=== PATIENT | female | born 1970 | race Caucasian/White ===

== ENCOUNTER 2016-09-05 04:52 | Inpatient (IN) | payer MEDICAID ==
[~2016-09-05] VITALS: Ht 165.1 cm; Wt 68.0 kg
[~2016-09-05 04:52] MED LIST: AMLO10TA80 PO; COR12 PO; FAMO40TA70 PO; GLIM2TAB2 PO; INSU3INS6 SUBCUT; METF10002 PO; METO-293 PO
[2016-09-05] MEDS ORDERED: FAMOTIDINE 20MG/2ML VIAL IV STA (06:22)
[2016-09-05] MEDS ORDERED: SODIUM CHLORIDE 0.9% 1,000 ML IV ONE ×2 (06:22→08:25)
[2016-09-05] MEDS ORDERED: METOCLOPRAMIDE HCL 10MG/2ML VIAL IV ONE (06:30)
[2016-09-05] MEDS ORDERED: DIPHENHYDRAMINE 50MG/ML VIAL IV ONE (06:30)
[2016-09-05 06:42] LABS: HEMOGLOBIN. 13.8 g/dL (12.0-16.0); MEAN CORPUSCULAR HEMOGLOBIN 24.9 pg (28.0-32.0); MEAN CORPUSCULAR VOLUME 73.9 fL (81.0-99.0); MEAN PLATELET VOLUME 8.5 fl (7.4-10.4); PLATELET 319 x1000/uL (130-400); RED BLOOD CELL COUNT 5.55 mill/uL (4.2-5.4)
[2016-09-05 06:51] LABS: HCG SCREEN NEGATIVE
[2016-09-05 06:54] LABS: CARBON DIOXIDE 26 mEq/L (21-32); CHLORIDE 95 mEq/L (98-107)
[2016-09-05] MEDS ORDERED: HYDRALAZINE 20MG/ML VIAL IV ONE (07:30)
[2016-09-05] MEDS ORDERED: INSULIN REGULAR (HUMULIN R) UD 100 UNITS/ML SYR SUBCUT ONE (07:30)
[2016-09-05 07:31] LABS: PLATELET ESTIMATE NORMAL
[2016-09-05] MEDS ORDERED: INSULIN REGULAR (HUMULIN R) 300UNITS/3ML SUBCUT SCH (07:50)
[2016-09-05 08:43] LABS: CLARITY URINE CLOUDY (CLEAR); COLOR URINE YELLOW (YELLOW); KETONES URINE 2+ (NEGATIVE); LEUKOCYTE ESTERASE URINE NEGATIVE (NEGATIVE); NITRITE URINE NEGATIVE (NEGATIVE); OCCULT BLOOD URINE NEGATIVE (NEGATIVE); PH URINE 5.5 (4.5-8.0); PROTEIN URINE TRACE (NEGATIVE); SPECIFIC GRAVITY URINE 1.028 (1.005-1.030); UROBILINOGEN URINE 0.2 E.U./dL (0.2-1.0)
[2016-09-05] MEDS ORDERED: IPRATROPIUM/ALBUTEROL 0.5-3(2.5)MG/3ML NEB INH PRN (11:00)
[2016-09-05] MEDS ORDERED: LORAZEPAM 1MG TABLET PO PRN (11:00)
[2016-09-05] MEDS ORDERED: DIPHENHYDRAMINE 50MG/ML VIAL IV PRN (11:00)
[2016-09-05] MEDS ORDERED: ONDANSETRON HCL 4MG/2ML VIAL IV PRN (11:00)
[2016-09-05] MEDS ORDERED: DEXTROSE 50% WATER 50ML SYRINGE IV PRN (11:00)
[2016-09-05] MEDS: INSULIN LISPRO 100 UNITS/ML SUBCUT SCH ×3 (12:40→22:41)
[2016-09-05] MEDS: DICYCLOMINE HCL 10MG CAPSULE PO SCH ×3 (12:45→23:41)
[2016-09-05] MEDS: PANTOPRAZOLE SODIUM 40 MG/VIAL IV SCH (12:45)
[2016-09-05] MEDS: METOCLOPRAMIDE HCL 10MG TABLET PO SCH ×3 (12:46→17:59)
[2016-09-05] MEDS: AMLODIPINE 10MG TABLET PO SCH (12:46)
[2016-09-05] MEDS: HYDROCODONE/ACETAMINOPHEN 10/325MG TABLET PO PRN ×3 (12:47→22:36)
[2016-09-05] MEDS: BLOOD SUGAR DIAGNOSTIC STRIP TEST SCH ×3 (12:53→21:36)
[2016-09-05 15:00] LABS: CLARITY URINE CLOUDY (CLEAR); COLOR URINE YELLOW (YELLOW); KETONES URINE 2+ (NEGATIVE); LEUKOCYTE ESTERASE URINE 1+ (NEGATIVE); NITRITE URINE NEGATIVE (NEGATIVE); OCCULT BLOOD URINE NEGATIVE (NEGATIVE); PROTEIN URINE NEGATIVE (NEGATIVE); SPECIFIC GRAVITY URINE 1.016 (1.005-1.030)
[2016-09-05 15:25] LABS: *AMPHETAMINES SCREEN URINE NEGATIVE (NEGATIVE); *BARBITURATES SCREEN URINE NEGATIVE (NEGATIVE); *BENZODIAZEPINES SCREEN URINE NEGATIVE (NEGATIVE); *COCAINE SCREEN URINE NEGATIVE (NEGATIVE); CANNABINOID URINE SCREEN NEGATIVE (NEGATIVE); METHADONE URINE SCREEN NEGATIVE (NEGATIVE); PHENCYCLIDINE URINE SCREEN NEGATIVE (NEGATIVE)
[2016-09-05 15:27] LABS: OPIATES URINE SCREEN PRESUMTIVE POSITIVE (NEGATIVE)
[2016-09-05] MEDS: DEXT 5%/0.45% NACL KCL 20MEQ/L 1,000 ML IV SCH (15:30)
[2016-09-05 18:01] LABS: CREATINE KINASE 57 IU/L (26-192); TROPONIN I < 0.02 ng/mL (0.00-0.04)
[2016-09-05] MEDS ORDERED: CLONIDINE 0.1MG TABLET PO PRN (18:30)
[2016-09-05] MEDS: CARVEDILOL 12.5MG TABLET PO SCH (22:36)
[2016-09-05] MEDS: INSULIN DETEMIR UD 100 UNITS/ML SYR SUBCUT SCH (22:41)
[2016-09-06 00:10] LABS: TROPONIN I 0.02 ng/mL (0.00-0.04)
[2016-09-06] MEDS: HYDROCODONE/ACETAMINOPHEN 10/325MG TABLET PO PRN ×2 (03:58→10:12)
[2016-09-06] MEDS: DEXT 5%/0.45% NACL KCL 20MEQ/L 1,000 ML IV SCH ×2 (03:58→11:23)
[2016-09-06] MEDS: DICYCLOMINE HCL 10MG CAPSULE PO SCH ×2 (06:02→12:24)
[2016-09-06] MEDS: INSULIN LISPRO 100 UNITS/ML SUBCUT SCH ×2 (06:04→12:26)
[2016-09-06] MEDS: BLOOD SUGAR DIAGNOSTIC STRIP TEST SCH ×2 (06:05→12:24)
[2016-09-06 07:54] LABS: CHLORIDE 99 mEq/L (98-107)
[2016-09-06 08:06] LABS: CARBON DIOXIDE 25 mEq/L (21-32); HDL CHOLESTEROL 91 mg/dL (40-59); LDL CHOLESTEROL 37 mg/dL (5-100)
[2016-09-06] MEDS: PANTOPRAZOLE SODIUM 40 MG/VIAL IV SCH (08:31)
[2016-09-06] MEDS: METOCLOPRAMIDE HCL 10MG TABLET PO SCH ×2 (08:32→12:24)
[2016-09-06] MEDS: CARVEDILOL 12.5MG TABLET PO SCH (08:39)
[2016-09-06] MEDS: AMLODIPINE 10MG TABLET PO SCH (08:40)
[2016-09-06 08:51] LABS: BASOPHILS % 0.4 % (0.0-2.0); EOSINOPHILS % 0.5 % (0.0-5.0); HEMOGLOBIN. 10.4 g/dL (12.0-16.0); LYMPHOCYTES % 39.5 % (20.0-50.0); MEAN CORPUSCULAR HEMOGLOBIN 24.8 pg (28.0-32.0); MEAN CORPUSCULAR VOLUME 74.2 fL (81.0-99.0); NEUTROPHILS % 51.6 % (40.0-76.0); PLATELET 249 x1000/uL (130-400); RED BLOOD CELL COUNT 4.18 mill/uL (4.2-5.4); RED CELL DISTRIBUTION WIDTH 15.9 % (11.6-14.6)
[2016-09-06] MEDS: INSULIN DETEMIR UD 100 UNITS/ML SYR SUBCUT SCH (11:24)
[2016-09-06] MEDS ORDERED: LEVVL SUBCUT (12:12)
[2016-09-06] MEDS ORDERED: METO-293 PO (12:12)
[2016-09-06 13:49] VITALS: BP 114/73
[2016-09-07] MEDS ORDERED: FAMOTIDINE 20MG TABLET PO SCH (09:00)
[2016-10-10] MEDS ORDERED: GLIM2TAB2 PO (12:13)
[2016-10-10] MEDS ORDERED: METO-293 PO (12:13)
[2017-02-11] MEDS ORDERED: TRAZ-129 PO (01:44)
[2017-02-11] MEDS ORDERED: SENN-169 PO (01:44)
== END 2016-09-06 15:00 | disposition home or self-care (01) | DRG 241 ==
LOC: ER 04:52 → 8WST 08:39 → ENRESERV 10:14
PROVIDERS: ADMIT Internal Medicine; ATTEND Internal Medicine
DX: K29.70 Gastritis, unspecified, without bleeding (principal); K31.84 Gastroparesis; E10.43 Type 1 diabetes mellitus with diabetic autonomic (poly)neuropathy; E10.65 Type 1 diabetes mellitus with hyperglycemia; I10 Essential (primary) hypertension; S66.319A Strain of extensor muscle, fascia and tendon of unspecified finger at wrist and hand level, initial encounter; E86.0 Dehydration; F17.210 Nicotine dependence, cigarettes, uncomplicated; Z79.4 Long term (current) use of insulin; Z79.84 Long term (current) use of oral hypoglycemic drugs; Z79.899 Other long term (current) drug therapy
CPT/HCPCS: 36415; 71010; 80053; 80061; 80305; 81001; 82550; 82962; 83605; 83690; 83735; 84484; 84703; 85025; 87040; 87045; 87077; 87086; 87186; 93005; 93971; 96361; 96372; 96374; 96375; 99285; C9113; J0360; J1200; J1815; J2765; J3490; J7030; J8597

== ENCOUNTER 2016-10-11 06:13 | Emergency (ER) | payer MEDICAID ==
[~2016-10-11] VITALS: Ht 165.1 cm; Wt 72.0 kg
[~2016-10-11 06:13] MED LIST changes: +FAMO40TA35 PO; -FAMO40TA70 PO; -INSU3INS6 SUBCUT; +LEVVL SUBCUT
[2016-10-11] MEDS ORDERED: VISCOUS LIDOCAINE 2% 15 ML UDC PO STA (06:50)
[2016-10-11] MEDS ORDERED: DICYCLOMINE 10 MG/5 ML ORAL SYR PO STA (06:50)
[2016-10-11] MEDS ORDERED: MORPHINE SULFATE 4 MG/ML CPJ (NOT FOR IM USE) IV STA (06:50)
[2016-10-11] MEDS ORDERED: ONDANSETRON HCL 4MG/2ML VIAL IV STA (06:50)
[2016-10-11] MEDS ORDERED: MAGNESIUM/ALUMINUM HYDROXIDE/SIMETHICONE 30ML UDC PO STA (06:50)
[2016-10-11 07:30] LABS: HEMATOCRIT. 37.2 % (36.0-48.0); HEMOGLOBIN. 12.8 g/dL (12.0-16.0); MEAN CORPUSCULAR HEMOGLOBIN 25.2 pg (28.0-32.0); MEAN CORPUSCULAR VOLUME 73.6 fL (81.0-99.0); MEAN PLATELET VOLUME 8.2 fl (7.4-10.4); PLATELET 282 x1000/uL (130-400); RED BLOOD CELL COUNT 5.06 mill/uL (4.2-5.4); RED CELL DISTRIBUTION WIDTH 16.8 % (11.6-14.6)
[2016-10-11 07:38] LABS: PROTHROMBIN TIME 10.8 sec
[2016-10-11 07:45] LABS: CARBON DIOXIDE 27 mEq/L (21-32); CHLORIDE 96 mEq/L (98-107)
[2016-10-11 08:37] LABS: PLATELET ESTIMATE NORMAL
[2016-10-11] MEDS ORDERED: SUCRALFATE 1 G/10 ML UDC PO SCH (09:00)
[2016-10-11 09:30] VITALS: BP 223/124
== END 2016-10-11 09:35 | disposition home or self-care (01) ==
LOC: ER 06:13
DX: K29.70 Gastritis, unspecified, without bleeding (principal); E11.9 Type 2 diabetes mellitus without complications; I10 Essential (primary) hypertension; Z90.49 Acquired absence of other specified parts of digestive tract; Z79.4 Long term (current) use of insulin; Z98.890 Other specified postprocedural states
CPT/HCPCS: 36415; 80053; 83690; 85025; 85610; 93005; 96374; 96375; 99285; J2270; J2405; J7030; Z7610

== ENCOUNTER 2016-10-11 09:51 | Emergency (ER) | payer MEDICAID | END 2016-10-11 10:37 | disposition left against medical advice (07) | LOC: ER 10:29 | DX: Z53.21 Procedure and treatment not carried out due to patient leaving prior to being seen by health care provider (principal) ==

== ENCOUNTER 2016-11-24 21:24 | Emergency (ER) | payer MEDICAID ==
[~2016-11-24 21:24] MED LIST changes: -FAMO40TA35 PO; +FAMO40TA70 PO
== END 2016-11-25 | disposition left against medical advice (07) ==
LOC: ER 21:25
DX: Z53.21 Procedure and treatment not carried out due to patient leaving prior to being seen by health care provider (principal)

== ENCOUNTER 2016-11-26 09:35 | Emergency (ER) | payer MEDICAID ==
[~2016-11-26] VITALS: Ht 165.1 cm; Wt 73.0 kg
[2016-11-26] MEDS ORDERED: SODIUM CHLORIDE 0.9% 1,000 ML IV ONE (15:07)
[2016-11-26] MEDS ORDERED: MORPHINE SULFATE 4 MG/ML CPJ (NOT FOR IM USE) IV STA (15:07)
[2016-11-26] MEDS ORDERED: ONDANSETRON HCL 4MG/2ML VIAL IV STA (15:07)
[2016-11-26 15:27] LABS: CLARITY URINE CLOUDY (CLEAR); COLOR URINE YELLOW (YELLOW); GLUCOSE URINE 3+ (NEGATIVE); KETONES URINE TRACE (NEGATIVE); LEUKOCYTE ESTERASE URINE 2+ (NEGATIVE); NITRITE URINE NEGATIVE (NEGATIVE); OCCULT BLOOD URINE 1+ (NEGATIVE); PH URINE 6.5 (4.5-8.0); PROTEIN URINE TRACE (NEGATIVE); SPECIFIC GRAVITY URINE 1.022 (1.005-1.030); UROBILINOGEN URINE 0.2 E.U./dL (0.2-1.0)
[2016-11-26 15:45] LABS: CHLORIDE 97 mEq/L (98-107); INR 1.1; PROTHROMBIN TIME 11.2 sec (9.4-11.6)
[2016-11-26 15:49] LABS: BASOPHILS % 0.4 % (0.0-2.0); EOSINOPHILS % 0.1 % (0.0-5.0); HEMATOCRIT. 33.6 % (36.0-48.0); HEMOGLOBIN. 11.2 g/dL (12.0-16.0); MEAN CORPUSCULAR HEMOGLOBIN 24.7 pg (28.0-32.0); MEAN PLATELET VOLUME 8.5 fl (7.4-10.4); MONOCYTES % 4.9 % (2.0-8.0); NEUTROPHILS % 71.6 % (40.0-76.0); PLATELET 293 x1000/uL (130-400); RED BLOOD CELL COUNT 4.53 mill/uL (4.2-5.4); RED CELL DISTRIBUTION WIDTH 15.9 % (11.6-14.6)
[2016-11-26 15:54] LABS: CARBON DIOXIDE 26 mEq/L (21-32)
[2016-11-26 15:57] LABS: HCG SCREEN NEGATIVE
[2016-11-26] MEDS ORDERED: POTASSIUM CHLORIDE 20MEQ TABLET SR PO ONE (16:15)
[2016-11-26] MEDS ORDERED: KETOROLAC 30MG/ML VIAL IV ONE (18:15)
[2016-11-26 19:28] VITALS: BP 130/79
== END 2016-11-26 19:29 | disposition home or self-care (01) ==
LOC: ER 09:44
DX: N39.0 Urinary tract infection, site not specified (principal); I10 Essential (primary) hypertension; E11.9 Type 2 diabetes mellitus without complications; Z79.4 Long term (current) use of insulin
CPT/HCPCS: 36415; 80053; 81001; 82962; 83690; 84703; 85025; 85610; 96361; 96374; 96375; 99284; J1885; J2270; J2405; J7030; Z7610

== ENCOUNTER 2017-03-12 05:08 | Emergency (ER) | payer MEDICAID ==
[~2017-03-12] VITALS: Ht 167.6 cm; Wt 77.0 kg
[~2017-03-12 05:08] MED LIST changes: +SENN-169 PO; +TRAZ-129 PO
[2017-03-12] MEDS ORDERED: MORPHINE SULFATE 4 MG/ML CPJ (NOT FOR IM USE) IV STA (06:53)
[2017-03-12 07:16] LABS: HEMATOCRIT. 42.4 % (36.0-48.0); HEMOGLOBIN. 14.1 g/dL (12.0-16.0); MEAN CORPUSCULAR HEMOGLOBIN 25.3 pg (28.0-32.0); MEAN CORPUSCULAR VOLUME 75.8 fL (81.0-99.0); PLATELET 344 x1000/uL (130-400); RED CELL DISTRIBUTION WIDTH 16.1 % (11.6-14.6)
[2017-03-12 07:21] LABS: INR 1.1; PARTIAL THROMBOPLASTIN TIME 24.7 sec (23.4-31.0); PROTHROMBIN TIME 11.4 sec (9.4-11.6)
[2017-03-12 07:31] LABS: CARBON DIOXIDE 21 mEq/L (21-32); CHLORIDE 92 mEq/L (98-107); TROPONIN I < 0.02 ng/mL (0.00-0.04)
[2017-03-12 07:34] LABS: KETONES URINE 1+ (NEGATIVE); LEUKOCYTE ESTERASE URINE NEGATIVE (NEGATIVE); NITRITE URINE NEGATIVE (NEGATIVE); OCCULT BLOOD URINE TRACE (NEGATIVE); PROTEIN URINE 2+ (NEGATIVE); SPECIFIC GRAVITY URINE 1.031 (1.005-1.030); UROBILINOGEN URINE 0.2 E.U./dL (0.2-1.0)
[2017-03-12] MEDS: PANTOPRAZOLE SODIUM 40 MG/VIAL IV STA (07:41)
[2017-03-12] MEDS: ONDANSETRON HCL 4MG/2ML VIAL IV STA (07:41)
[2017-03-12] MEDS: SODIUM CHLORIDE 0.9% 1,000 ML IV ONE (07:41)
[2017-03-12 07:42] LABS: CLARITY URINE CLEAR (CLEAR); COLOR URINE YELLOW (YELLOW)
[2017-03-12] MEDS: MORPHINE SULFATE 2 MG/ML CPJ (NOT FOR IM USE) IV ONE (07:42)
[2017-03-12 08:05] LABS: PLATELET ESTIMATE NORMAL
[2017-03-12 12:02] VITALS: BP 160/84
== END 2017-03-12 12:16 | disposition home or self-care (01) ==
LOC: ER 05:08 → EDBEDREQ 06:58 → CANRESERV 11:02 → ENRESERV 11:02 → CANBEDREQ 12:11 → ER 12:16
DX: K29.70 Gastritis, unspecified, without bleeding (principal); E11.65 Type 2 diabetes mellitus with hyperglycemia; I10 Essential (primary) hypertension; Z79.4 Long term (current) use of insulin
CPT/HCPCS: 36415; 71010; 80053; 81001; 82010; 82962; 83690; 84484; 85025; 85610; 85730; 93005; 96361; 96374; 96375; 99285; C9113; J2270; J2405; J7030; Z7610

== ENCOUNTER 2017-03-13 09:28 | Emergency (ER) | payer MEDICAID ==
[~2017-03-13] VITALS: Ht 165.1 cm; Wt 75.0 kg
[2017-03-13] MEDS ORDERED: MORPHINE SULFATE 4 MG/ML CPJ (NOT FOR IM USE) IV STA (09:40)
[2017-03-13] MEDS ORDERED: ONDANSETRON HCL 4MG/2ML VIAL IV STA (09:40)
[2017-03-13] MEDS ORDERED: SODIUM CHLORIDE 0.9% 1,000 ML IV ONE (09:40)
[2017-03-13] MEDS ORDERED: PANTOPRAZOLE SODIUM 40 MG/VIAL IV ONE (09:45)
[2017-03-13 10:21] LABS: BASOPHILS % 0.3 % (0.0-2.0); EOSINOPHILS % 0.2 % (0.0-5.0); HEMATOCRIT. 37.2 % (36.0-48.0); HEMOGLOBIN. 12.6 g/dL (12.0-16.0); LYMPHOCYTES % 11.3 % (20.0-50.0); MEAN CORPUSCULAR HEMOGLOBIN 25.9 pg (28.0-32.0); MEAN CORPUSCULAR VOLUME 76.4 fL (81.0-99.0); MEAN PLATELET VOLUME 8.9 fl (7.4-10.4); MONOCYTES % 3.8 % (2.0-8.0); NEUTROPHILS % 84.4 % (40.0-76.0); PLATELET 263 x1000/uL (130-400); RED BLOOD CELL COUNT 4.87 mill/uL (4.2-5.4); RED CELL DISTRIBUTION WIDTH 16.3 % (11.6-14.6)
[2017-03-13 10:27] LABS: INR 1.1
[2017-03-13 10:34] LABS: CARBON DIOXIDE 24 mEq/L (21-32); CHLORIDE 96 mEq/L (98-107); TROPONIN I < 0.02 ng/mL (0.00-0.04)
[2017-03-13 12:21] LABS: CLARITY URINE CLEAR (CLEAR); COLOR URINE YELLOW (YELLOW); KETONES URINE 1+ (NEGATIVE); LEUKOCYTE ESTERASE URINE 1+ (NEGATIVE); NITRITE URINE NEGATIVE (NEGATIVE); OCCULT BLOOD URINE NEGATIVE (NEGATIVE); PH URINE 5.5 (4.5-8.0); PROTEIN URINE 1+ (NEGATIVE); SPECIFIC GRAVITY URINE 1.024 (1.005-1.030); UROBILINOGEN URINE 0.2 E.U./dL (0.2-1.0)
[2017-03-13] MEDS ORDERED: MORPHINE SULFATE 4 MG/ML CPJ (NOT FOR IM USE) IV ONE (13:30)
[2017-03-13] MEDS ORDERED: LABETALOL 5MG/ML SYR 20 MG/4 ML SYRINGE IV ONE (13:30)
[2017-03-13] MEDS ORDERED: ONDANSETRON HCL 4MG/2ML VIAL IV ONE ×2 (13:30→13:45)
[2017-03-13] MEDS ORDERED: IOHEXOL-300 100 ML BOTTLE ONE (14:37)
[2017-03-13] MEDS ORDERED: SODIUM CHLORIDE 0.45% 1,000 ML IV SCH (17:55)
[2017-03-13] MEDS ORDERED: MORPHINE SULFATE 2 MG/ML CPJ (NOT FOR IM USE) IV PRN (18:00)
[2017-03-13] MEDS ORDERED: ACETAMINOPHEN 650MG/20.3ML UDC GT PRN (18:00)
[2017-03-13] MEDS ORDERED: MAGNESIUM/ALUMINUM HYDROXIDE/SIMETHICONE 30ML UDC PO PRN (18:00)
[2017-03-13] MEDS ORDERED: DOCUSATE SODIUM 100MG CAPSULE PO PRN (18:00)
[2017-03-13] MEDS ORDERED: ONDANSETRON HCL 4MG/2ML VIAL IV PRN (18:00)
[2017-03-13] MEDS ORDERED: HYDROCODONE/ACETAMINOPHEN 5/325MG TABLET PO PRN (18:00)
[2017-03-13] MEDS ORDERED: CLONIDINE 0.1MG TABLET PO PRN (18:00)
[2017-03-13] MEDS ORDERED: IPRATROPIUM/ALBUTEROL 0.5-3(2.5)MG/3ML NEB INH PRN (18:00)
[2017-03-13] MEDS ORDERED: GUAIFENESIN 200MG/10ML SUGAR FREE UDC PO PRN (18:00)
[2017-03-13] MEDS ORDERED: ACETAMINOPHEN 650MG SUPP PR PRN (18:00)
[2017-03-13] MEDS ORDERED: ENOXAPARIN 40MG/0.4ML SYR SUBCUT SCH (18:00)
[2017-03-13] MEDS ORDERED: ACETAMINOPHEN 325MG TABLET PO PRN (18:00)
[2017-03-13] MEDS ORDERED: NA PHOS,M-B/NA PHOS,DI-BA ENEMA 118ML PR PRN (18:00)
[2017-03-13] MEDS ORDERED: METOCLOPRAMIDE HCL 10MG/2ML VIAL IV NR (18:00)
[2017-03-13] MEDS ORDERED: DIPHENHYDRAMINE 50MG/ML VIAL IV PRN (18:00)
[2017-03-13 19:37] VITALS: BP 109/69
[2017-03-13 20:40] LABS: *AMPHETAMINES SCREEN URINE NEGATIVE (NEGATIVE); *BARBITURATES SCREEN URINE NEGATIVE (NEGATIVE); *BENZODIAZEPINES SCREEN URINE NEGATIVE (NEGATIVE); *COCAINE SCREEN URINE NEGATIVE (NEGATIVE); METHADONE URINE SCREEN NEGATIVE (NEGATIVE); PHENCYCLIDINE URINE SCREEN NEGATIVE (NEGATIVE)
[2017-03-13 20:41] LABS: CANNABINOID URINE SCREEN PRESUMTIVE POSITIVE (NEGATIVE); OPIATES URINE SCREEN PRESUMTIVE POSITIVE (NEGATIVE)
[2017-03-13] MEDS ORDERED: SODIUM CHLORIDE 0.9% INJ 3ML FLUSH IVF SCH (22:00)
== END 2017-03-13 21:01 | disposition left against medical advice (07) ==
LOC: ER 09:38 → ENRESERV 15:04 → CANRESERV 15:04 → ER 21:01 → CMPBEDREQ 21:27
DX: R10.13 Epigastric pain (principal); R11.2 Nausea with vomiting, unspecified; E11.9 Type 2 diabetes mellitus without complications; Z87.19 Personal history of other diseases of the digestive system; Z79.4 Long term (current) use of insulin
CPT/HCPCS: 36415; 74177; 80053; 80305; 81001; 81025; 83690; 84484; 85025; 85610; 85730; 96361; 96374; 96375; 96376; 99285; C9113; J1200; J2270; J2405; J3490; J7042; Q9967; X7700; Z7610; J7030

== ENCOUNTER 2017-03-31 04:04 | Emergency (ER) | payer MEDICAID ==
[~2017-03-31] VITALS: Ht 165.1 cm; Wt 75.0 kg
[2017-03-31] MEDS ORDERED: ONDANSETRON HCL 4MG/2ML VIAL IV STA (06:46)
[2017-03-31] MEDS ORDERED: SODIUM CHLORIDE 0.9% 1,000 ML IV ONE (06:46)
[2017-03-31] MEDS ORDERED: KETOROLAC 30MG/ML VIAL IV STA (06:46)
[2017-03-31 07:40] VITALS: BP 136/71
[2017-03-31 08:19] LABS: HEMATOCRIT. 40.7 % (36.0-48.0); HEMOGLOBIN. 13.5 g/dL (12.0-16.0); MEAN CORPUSCULAR HEMOGLOBIN 25.7 pg (28.0-32.0); MEAN CORPUSCULAR VOLUME 77.3 fL (81.0-99.0); MEAN PLATELET VOLUME 8.6 fl (7.4-10.4); PLATELET 290 x1000/uL (130-400); RED BLOOD CELL COUNT 5.26 mill/uL (4.2-5.4)
[2017-03-31 08:27] LABS: CHLORIDE 96 mEq/L (98-107)
[2017-03-31 08:28] LABS: INR 1.1; PROTHROMBIN TIME 11.4 sec (9.4-11.6)
[2017-03-31 08:31] LABS: CLARITY URINE CLEAR (CLEAR); COLOR URINE YELLOW (YELLOW); KETONES URINE 3+ (NEGATIVE); LEUKOCYTE ESTERASE URINE NEGATIVE (NEGATIVE); NITRITE URINE NEGATIVE (NEGATIVE); OCCULT BLOOD URINE TRACE (NEGATIVE); PROTEIN URINE 2+ (NEGATIVE); SPECIFIC GRAVITY URINE 1.024 (1.005-1.030); UROBILINOGEN URINE 0.2 E.U./dL (0.2-1.0)
[2017-03-31 08:37] LABS: CARBON DIOXIDE 23 mEq/L (21-32); ETHANOL BLOOD < 10 mg/dL; PLATELET ESTIMATE NORMAL
[2017-03-31 09:02] LABS: *AMPHETAMINES SCREEN URINE NEGATIVE (NEGATIVE); *BARBITURATES SCREEN URINE NEGATIVE (NEGATIVE); *BENZODIAZEPINES SCREEN URINE NEGATIVE (NEGATIVE); *COCAINE SCREEN URINE NEGATIVE (NEGATIVE); METHADONE URINE SCREEN NEGATIVE (NEGATIVE); OPIATES URINE SCREEN NEGATIVE (NEGATIVE); PHENCYCLIDINE URINE SCREEN NEGATIVE (NEGATIVE)
[2017-03-31 09:05] LABS: CANNABINOID URINE SCREEN PRESUMTIVE POSITIVE (NEGATIVE)
== END 2017-03-31 09:19 | disposition left against medical advice (07) ==
LOC: ER 04:04
DX: R10.13 Epigastric pain (principal); E11.9 Type 2 diabetes mellitus without complications; K76.0 Fatty (change of) liver, not elsewhere classified; Z79.4 Long term (current) use of insulin; Z90.49 Acquired absence of other specified parts of digestive tract
CPT/HCPCS: 36415; 74176; 80053; 80305; 81001; 83690; 85025; 85610; 96361; 96374; 96375; 99285; G0482; J1885; J2405; J7030

== ENCOUNTER 2017-05-15 15:08 | Emergency (ER) | payer MEDICAID ==
[~2017-05-15] VITALS: Ht 165.1 cm; Wt 80.0 kg
[2017-05-15] MEDS ORDERED: SODIUM CHLORIDE 0.9% 1,000 ML IV ONE (16:16)
[2017-05-15] MEDS ORDERED: MORPHINE SULFATE 4 MG/ML CPJ (NOT FOR IM USE) IV STA (16:16)
[2017-05-15] MEDS ORDERED: MAGNESIUM/ALUMINUM HYDROXIDE/SIMETHICONE 30ML UDC PO STA (16:16)
[2017-05-15] MEDS ORDERED: ONDANSETRON HCL 4MG/2ML VIAL IV STA (16:16)
[2017-05-15] MEDS ORDERED: VISCOUS LIDOCAINE 2% 15 ML UDC PO STA (16:16)
[2017-05-15 16:57] LABS: BASOPHILS % 0.4 % (0.0-2.0); HEMATOCRIT. 35.7 % (36.0-48.0); LYMPHOCYTES % 24.5 % (20.0-50.0); MEAN CORPUSCULAR HEMOGLOBIN 26.4 pg (28.0-32.0); MEAN CORPUSCULAR VOLUME 78.5 fL (81.0-99.0); MEAN PLATELET VOLUME 8.6 fl (7.4-10.4); MONOCYTES % 6.7 % (2.0-8.0); NEUTROPHILS % 67.4 % (40.0-76.0); PLATELET 240 x1000/uL (130-400); RED BLOOD CELL COUNT 4.55 mill/uL (4.2-5.4); RED CELL DISTRIBUTION WIDTH 16.8 % (11.6-14.6)
[2017-05-15 16:59] LABS: PROTHROMBIN TIME 10.7 sec (9.4-11.6)
[2017-05-15 17:03] LABS: CHLORIDE 104 mEq/L (98-107)
[2017-05-15 17:12] LABS: HCG SCREEN NEGATIVE
[2017-05-15 17:51] LABS: CLARITY URINE CLOUDY (CLEAR); COLOR URINE YELLOW (YELLOW); KETONES URINE TRACE (NEGATIVE); LEUKOCYTE ESTERASE URINE 3+ (NEGATIVE); NITRITE URINE NEGATIVE (NEGATIVE); OCCULT BLOOD URINE NEGATIVE (NEGATIVE); PROTEIN URINE TRACE (NEGATIVE); SPECIFIC GRAVITY URINE 1.018 (1.005-1.030); UROBILINOGEN URINE 0.2 E.U./dL (0.2-1.0)
[2017-05-15 18:38] VITALS: BP 151/74
== END 2017-05-15 19:26 | disposition home or self-care (01) ==
LOC: ER 15:30
DX: R10.9 Unspecified abdominal pain (principal); R11.2 Nausea with vomiting, unspecified; E11.9 Type 2 diabetes mellitus without complications; Z79.4 Long term (current) use of insulin; Z87.11 Personal history of peptic ulcer disease; Z87.19 Personal history of other diseases of the digestive system; Z98.890 Other specified postprocedural states; Z98.51 Tubal ligation status
CPT/HCPCS: 36415; 80053; 81003; 83690; 84703; 85025; 85610; 87086; 96361; 96374; 96375; 99284; J2270; J2405; J7030; Z7610

== ENCOUNTER 2017-05-21 04:17 | Inpatient (IN) | payer MEDICAID ==
[~2017-05-21] VITALS: Ht 165.1 cm; Wt 81.6 kg
[2017-05-21] MEDS ORDERED: METOCLOPRAMIDE HCL 10MG/2ML VIAL IV STA (04:34)
[2017-05-21] MEDS ORDERED: PANTOPRAZOLE SODIUM 40 MG/VIAL IV STA (04:34)
[2017-05-21] MEDS ORDERED: VISCOUS LIDOCAINE 2% 15 ML UDC PO STA (04:34)
[2017-05-21] MEDS ORDERED: MAGNESIUM/ALUMINUM HYDROXIDE/SIMETHICONE 30ML UDC PO STA (04:34)
[2017-05-21 05:12] LABS: BASOPHILS % 0.3 % (0.0-2.0); HEMATOCRIT. 38.9 % (36.0-48.0); HEMOGLOBIN. 12.8 g/dL (12.0-16.0); LYMPHOCYTES % 4.4 % (20.0-50.0); MEAN CORPUSCULAR HEMOGLOBIN 26.5 pg (28.0-32.0); MEAN CORPUSCULAR VOLUME 80.3 fL (81.0-99.0); MEAN PLATELET VOLUME 8.9 fl (7.4-10.4); MONOCYTES % 1.3 % (2.0-8.0); PLATELET 302 x1000/uL (130-400); RED BLOOD CELL COUNT 4.85 mill/uL (4.2-5.4); RED CELL DISTRIBUTION WIDTH 16.4 % (11.6-14.6)
[2017-05-21 05:14] LABS: CLARITY URINE CLEAR (CLEAR); COLOR URINE YELLOW (YELLOW); KETONES URINE 3+ (NEGATIVE); LEUKOCYTE ESTERASE URINE NEGATIVE (NEGATIVE); NITRITE URINE NEGATIVE (NEGATIVE); OCCULT BLOOD URINE TRACE (NEGATIVE); PH URINE 5.5 (4.5-8.0); PROTEIN URINE 1+ (NEGATIVE); SPECIFIC GRAVITY URINE 1.023 (1.005-1.030); UROBILINOGEN URINE 0.2 E.U./dL (0.2-1.0)
[2017-05-21 05:23] LABS: INR 1.1; PROTHROMBIN TIME 11.2 sec (9.4-11.6)
[2017-05-21 05:24] LABS: CHLORIDE 100 mEq/L (98-107)
[2017-05-21 05:28] LABS: BETA HYDROXYBUTYRATE 1.3 mMol/L (0.0-0.3)
[2017-05-21] MEDS ORDERED: METOCLOPRAMIDE HCL 10MG/2ML VIAL IV ONE (06:00)
[2017-05-21] MEDS ORDERED: LORAZEPAM 1MG TABLET PO ONE (06:00)
[2017-05-21] MEDS ORDERED: SODIUM CHLORIDE 0.9% 1,000 ML IV ONE (06:00)
[2017-05-21] MEDS ORDERED: POTASSIUM CHLORIDE INJ 40 MEQ in DEXT 5% WATER 250 ML IV ONE (06:00)
[2017-05-21] MEDS ORDERED: MORPHINE SULFATE 4 MG/ML CPJ (NOT FOR IM USE) IV ONE (06:30)
[2017-05-21] MEDS ORDERED: DIPHENHYDRAMINE 50MG/ML VIAL IV ONE (06:30)
[2017-05-21] MEDS ORDERED: MIDAZOLAM HCL 2 MG/2 ML VIAL IV ONE ×2 (07:00→10:30)
[2017-05-21] MEDS ORDERED: ENALAPRIL 2.5MG/2ML VIAL 2ML IV ONE (07:00)
[2017-05-21] MEDS ORDERED: MIDAZOLAM HCL 5 MG/ML VIAL ONE (10:30)
[2017-05-21] MEDS: MORPHINE SULFATE 4 MG/ML CPJ (NOT FOR IM USE) IV PRN ×3 (11:16→21:18)
[2017-05-21] MEDS: ONDANSETRON HCL 4MG/2ML VIAL IV PRN ×3 (11:56→21:18)
[2017-05-21 22:15] VITALS: BP 155/84
[2017-05-21 22:30] VITALS: BP 155/84
[2017-05-21] MEDS: BLOOD SUGAR DIAGNOSTIC STRIP TEST SCH (22:45)
[2017-05-21] MEDS ORDERED: DEXTROSE 50% WATER 50ML SYRINGE IV PRN (23:15)
[2017-05-21] MEDS ORDERED: SUCR1TAB30 PO ×2 (23:17→23:26)
[2017-05-21] MEDS ORDERED: LISI-604 PO (23:17)
[2017-05-21] MEDS: LISINOPRIL 20MG TABLET PO SCH (23:30)
[2017-05-21] MEDS ORDERED: MEDICATION NOT ON FORMULARY EA (Famotidine (Pepcid) 1 TAB) PO SCH (23:30)
[2017-05-21] MEDS ORDERED: LEVVL SQ (23:33)
[2017-05-21] MEDS ORDERED: MEDICATION NOT ON FORMULARY EA (Insulin Detemir (Levemir) 20 UNIT) SQ SCH (23:45)
[2017-05-22] MEDS: INSULIN LISPRO 100 UNITS/ML SUBCUT SCH ×5 (00:16→21:22)
[2017-05-22] MEDS: METOCLOPRAMIDE HCL 10MG TABLET PO SCH ×4 (00:17→18:25)
[2017-05-22] MEDS: TRAZODONE HCL 50MG TABLET PO SCH ×2 (00:18→18:24)
[2017-05-22 00:41] VITALS: BP 127/80
[2017-05-22] MEDS: PANTOPRAZOLE SODIUM 40 MG/VIAL IV SCH ×2 (00:57→08:20)
[2017-05-22] MEDS: MORPHINE SULFATE 4 MG/ML CPJ (NOT FOR IM USE) IV PRN ×4 (01:01→18:24)
[2017-05-22] MEDS: SODIUM CHLORIDE 0.9% 1,000 ML IV SCH ×2 (01:10→15:45)
[2017-05-22] MEDS: ONDANSETRON HCL 4MG/2ML VIAL IV PRN ×4 (02:41→20:37)
[2017-05-22] MEDS: LORAZEPAM 1MG TABLET PO PRN (02:46)
[2017-05-22 04:00] VITALS: BP 102/65
[2017-05-22] MEDS: BLOOD SUGAR DIAGNOSTIC STRIP TEST SCH ×4 (06:24→21:00)
[2017-05-22] MEDS: SUCRALFATE 1G TABLET PO SCH ×4 (06:27→21:23)
[2017-05-22 06:49] LABS: BASOPHILS % 0.1 % (0.0-2.0); EOSINOPHILS % 0.1 % (0.0-5.0); HEMATOCRIT. 32.4 % (36.0-48.0); LYMPHOCYTES % 12.8 % (20.0-50.0); MEAN CORPUSCULAR HEMOGLOBIN 26.2 pg (28.0-32.0); MEAN CORPUSCULAR VOLUME 77.3 fL (81.0-99.0); MEAN PLATELET VOLUME 8.7 fl (7.4-10.4); MONOCYTES % 7.4 % (2.0-8.0); NEUTROPHILS % 79.6 % (40.0-76.0); PLATELET 307 x1000/uL (130-400); RED BLOOD CELL COUNT 4.19 mill/uL (4.2-5.4); RED CELL DISTRIBUTION WIDTH 16.6 % (11.6-14.6)
[2017-05-22 07:04] LABS: CHLORIDE 99 mEq/L (98-107)
[2017-05-22 08:00] VITALS: BP 135/82
[2017-05-22] MEDS: FAMOTIDINE 20MG TABLET PO SCH ×2 (08:19→21:23)
[2017-05-22] MEDS: LISINOPRIL 20MG TABLET PO SCH (08:20)
[2017-05-22] MEDS: ACETAMINOPHEN 325MG TABLET PO PRN (08:24)
[2017-05-22] MEDS: HYDROCODONE/ACETAMINOPHEN 5/325MG TABLET PO PRN ×2 (10:32→20:32)
[2017-05-22] MEDS: INSULIN GLARGINE UD 100 UNITS/ML SYR SUBCUT SCH ×2 (10:40→21:23)
[2017-05-22 12:00] VITALS: BP 102/61
[2017-05-22] MEDS ORDERED: POTASSIUM CHLORIDE 20MEQ TABLET SR PO NR (12:45)
[2017-05-22] MEDS ORDERED: POTASSIUM CHLORIDE INJ 40 MEQ in DEXT 5% WATER 250 ML IV NR (14:00)
[2017-05-22] MEDS ORDERED: CEFTRIAXONE 1 G PREMIX 50 ML IV SCH (15:00)
[2017-05-22 16:00] VITALS: BP 105/64
[2017-05-22] MEDS: CEFTRIAXONE 1 G PREMIX 50 ML IV SCH (18:25)
[2017-05-22 20:00] VITALS: BP 162/96
[2017-05-22] MEDS ORDERED: CLONIDINE 0.1MG TABLET PO PRN (22:00)
[2017-05-22] MEDS ORDERED: MORPHINE SULFATE 4 MG/ML CPJ (NOT FOR IM USE) IV NR (22:00)
[2017-05-23] VITALS (10 sets, daily range): BP systolic 87–157; BP diastolic 36–88
[2017-05-23] MEDS: MORPHINE SULFATE 4 MG/ML CPJ (NOT FOR IM USE) IV PRN ×6 (02:33→22:13)
[2017-05-23] MEDS: SODIUM CHLORIDE 0.9% 1,000 ML IV SCH ×2 (03:49→22:28)
[2017-05-23] MEDS: ONDANSETRON HCL 4MG/2ML VIAL IV PRN ×2 (06:15→22:13)
[2017-05-23] MEDS: SUCRALFATE 1G TABLET PO SCH ×4 (06:15→22:15)
[2017-05-23] MEDS: INSULIN LISPRO 100 UNITS/ML SUBCUT SCH ×4 (06:21→22:18)
[2017-05-23] MEDS: BLOOD SUGAR DIAGNOSTIC STRIP TEST SCH ×4 (06:21→21:00)
[2017-05-23 06:40] LABS: BASOPHILS % 0.2 % (0.0-2.0); EOSINOPHILS % 0.2 % (0.0-5.0); HEMATOCRIT. 30.1 % (36.0-48.0); HEMOGLOBIN. 10.3 g/dL (12.0-16.0); LYMPHOCYTES % 33.7 % (20.0-50.0); MEAN CORPUSCULAR VOLUME 78.4 fL (81.0-99.0); MEAN PLATELET VOLUME 8.6 fl (7.4-10.4); MONOCYTES % 7.5 % (2.0-8.0); NEUTROPHILS % 58.4 % (40.0-76.0); PLATELET 281 x1000/uL (130-400); RED BLOOD CELL COUNT 3.84 mill/uL (4.2-5.4); RED CELL DISTRIBUTION WIDTH 16.3 % (11.6-14.6)
[2017-05-23 07:17] LABS: CHLORIDE 101 mEq/L (98-107)
[2017-05-23] MEDS: METOCLOPRAMIDE HCL 10MG TABLET PO SCH ×3 (09:14→16:45)
[2017-05-23] MEDS: LISINOPRIL 20MG TABLET PO SCH (09:14)
[2017-05-23] MEDS: PANTOPRAZOLE SODIUM 40 MG/VIAL IV SCH (09:15)
[2017-05-23] MEDS: FAMOTIDINE 20MG TABLET PO SCH (09:15)
[2017-05-23] MEDS: INSULIN GLARGINE UD 100 UNITS/ML SYR SUBCUT SCH ×2 (09:29→22:19)
[2017-05-23] MEDS: CEFTRIAXONE 1 G PREMIX 50 ML IV SCH (14:37)
[2017-05-23] MEDS ORDERED: POTASSIUM CHLORIDE INJ 40 MEQ in DEXT 5% WATER 250 ML IV SCH (16:00)
[2017-05-23] MEDS: TRAZODONE HCL 50MG TABLET PO SCH (16:44)
[2017-05-24 00:08] VITALS: BP 96/58
[2017-05-24 04:00] VITALS: BP 92/43
[2017-05-24] MEDS: HYDROCODONE/ACETAMINOPHEN 5/325MG TABLET PO PRN (04:15)
[2017-05-24 06:18] LABS: CHLORIDE 103 mEq/L (98-107)
[2017-05-24] MEDS: SUCRALFATE 1G TABLET PO SCH ×4 (06:31→21:10)
[2017-05-24] MEDS: INSULIN LISPRO 100 UNITS/ML SUBCUT SCH ×4 (06:32→21:00)
[2017-05-24] MEDS: BLOOD SUGAR DIAGNOSTIC STRIP TEST SCH ×4 (06:32→21:00)
[2017-05-24 08:00] VITALS: BP 90/53
[2017-05-24] MEDS: LISINOPRIL 20MG TABLET PO SCH (09:00)
[2017-05-24] MEDS: PANTOPRAZOLE SODIUM 40 MG/VIAL IV SCH (09:05)
[2017-05-24] MEDS: METOCLOPRAMIDE HCL 10MG TABLET PO SCH ×3 (09:05→17:31)
[2017-05-24] MEDS: ACETAMINOPHEN 325MG TABLET PO PRN (09:06)
[2017-05-24] MEDS: INSULIN GLARGINE UD 100 UNITS/ML SYR SUBCUT SCH ×2 (10:10→21:21)
[2017-05-24] MEDS: MORPHINE SULFATE 4 MG/ML CPJ (NOT FOR IM USE) IV PRN ×3 (11:53→21:10)
[2017-05-24 11:57] VITALS: BP 106/63
[2017-05-24 16:00] VITALS: BP 120/80
[2017-05-24] MEDS: TRAZODONE HCL 50MG TABLET PO SCH (17:31)
[2017-05-24] MEDS: CEFTRIAXONE 1 G PREMIX 50 ML IV SCH (17:32)
[2017-05-24 20:00] VITALS: BP 93/53
[2017-05-24] MEDS: SODIUM CHLORIDE 0.9% 1,000 ML IV SCH (21:17)
[2017-05-25] VITALS: BP 120/61
[2017-05-25] MEDS: MORPHINE SULFATE 4 MG/ML CPJ (NOT FOR IM USE) IV PRN ×2 (00:40→06:08)
[2017-05-25 04:00] VITALS: BP 143/61
[2017-05-25] MEDS: SUCRALFATE 1G TABLET PO SCH ×2 (06:10→12:04)
[2017-05-25] MEDS: BLOOD SUGAR DIAGNOSTIC STRIP TEST SCH ×2 (06:11→11:22)
[2017-05-25] MEDS: INSULIN LISPRO 100 UNITS/ML SUBCUT SCH ×2 (06:52→11:55)
[2017-05-25] MEDS: ONDANSETRON HCL 4MG/2ML VIAL IV PRN (07:32)
[2017-05-25 08:00] VITALS: BP 116/67
[2017-05-25] MEDS: PANTOPRAZOLE SODIUM 40 MG/VIAL IV SCH (09:21)
[2017-05-25] MEDS: METOCLOPRAMIDE HCL 10MG TABLET PO SCH ×2 (09:21→12:04)
[2017-05-25] MEDS: SODIUM CHLORIDE 0.9% 1,000 ML IV SCH (09:21)
[2017-05-25] MEDS: LISINOPRIL 20MG TABLET PO SCH (09:21)
[2017-05-25] MEDS: INSULIN GLARGINE UD 100 UNITS/ML SYR SUBCUT SCH (10:38)
[2017-05-25] MEDS: HYDROCODONE/ACETAMINOPHEN 5/325MG TABLET PO PRN (10:58)
[2017-05-25 12:00] VITALS: BP 168/89
[2017-05-25] MEDS: LORAZEPAM 1MG TABLET PO PRN (12:04)
[2017-05-25 13:48] LABS: HCG SCREEN NEGATIVE
[2017-05-25 13:49] LABS: CHLORIDE 107 mEq/L (98-107)
== END 2017-05-25 13:15 | disposition left against medical advice (07) | DRG 241 ==
LOC: ER 04:17 → 8WST 05:54 → EDBEDREQ 06:03 → ENRESERV 20:33
PROVIDERS: ADMIT Internal Medicine; ATTEND Internal Medicine
DX: K27.9 Peptic ulcer, site unspecified, unspecified as acute or chronic, without hemorrhage or perforation (principal); K31.84 Gastroparesis; K76.0 Fatty (change of) liver, not elsewhere classified; E11.43 Type 2 diabetes mellitus with diabetic autonomic (poly)neuropathy; E11.65 Type 2 diabetes mellitus with hyperglycemia; E87.6 Hypokalemia; E66.9 Obesity, unspecified; D72.829 Elevated white blood cell count, unspecified; K29.70 Gastritis, unspecified, without bleeding; I10 Essential (primary) hypertension; Z53.21 Procedure and treatment not carried out due to patient leaving prior to being seen by health care provider; F41.9 Anxiety disorder, unspecified; N28.9 Disorder of kidney and ureter, unspecified; Z90.49 Acquired absence of other specified parts of digestive tract; Z68.30 Body mass index [BMI] 30.0-30.9, adult; Z98.51 Tubal ligation status
CPT/HCPCS: 36415; 71045; 76705; 80048; 80053; 81003; 81025; 82010; 82962; 83690; 84703; 85025; 85610; 87040; 87086; 87804; 93005; 96365; 96375; 96376; 99285; C1893; C9113; J0696; J1815; J2250; J2270; J2405; J2765; J3480; J3490; J7030; J7060; J8597

== ENCOUNTER 2017-07-10 05:30 | Emergency (ER) | payer MEDICAID ==
[~2017-07-10] VITALS: Ht 165.1 cm; Wt 65.0 kg
[~2017-07-10 05:30] MED LIST changes: -AMLO10TA80 PO; -COR12 PO; -GLIM2TAB2 PO; +LEVVL SQ; -LEVVL SUBCUT; +LISI-604 PO; -METF10002 PO; -SENN-169 PO; +SUCR1TAB30 PO
[2017-07-10] MEDS ORDERED: ONDANSETRON HCL 4MG/2ML VIAL IV STA (05:56)
[2017-07-10] MEDS ORDERED: FAMOTIDINE 20MG/2ML VIAL IV STA (05:56)
[2017-07-10] MEDS ORDERED: KETOROLAC 30MG/ML VIAL IV STA (05:56)
[2017-07-10] MEDS ORDERED: SODIUM CHLORIDE 0.9% 1,000 ML IV ONE (05:56)
[2017-07-10 06:30] LABS: CHLORIDE 102 mEq/L (98-107)
[2017-07-10] MEDS ORDERED: MORPHINE SULFATE 10 MG/ML CPJ IV ONE (06:30)
[2017-07-10 06:33] LABS: PROTHROMBIN TIME 10.7 sec (9.4-11.6)
[2017-07-10 06:34] LABS: BASOPHILS % 0.6 % (0.0-2.0); EOSINOPHILS % 2.1 % (0.0-5.0); HEMATOCRIT. 37.5 % (36.0-48.0); HEMOGLOBIN. 12.5 g/dL (12.0-16.0); MEAN CORPUSCULAR HEMOGLOBIN 26.7 pg (28.0-32.0); MEAN PLATELET VOLUME 9.3 fl (7.4-10.4); MONOCYTES % 6.8 % (2.0-8.0); NEUTROPHILS % 63.5 % (40.0-76.0); PLATELET 220 x1000/uL (130-400); RED BLOOD CELL COUNT 4.69 mill/uL (4.2-5.4); RED CELL DISTRIBUTION WIDTH 15.9 % (11.6-14.6)
[2017-07-10 07:17] LABS: CLARITY URINE CLOUDY (CLEAR); COLOR URINE YELLOW (YELLOW); KETONES URINE NEGATIVE (NEGATIVE); LEUKOCYTE ESTERASE URINE 3+ (NEGATIVE); NITRITE URINE NEGATIVE (NEGATIVE); OCCULT BLOOD URINE 3+ (NEGATIVE); PROTEIN URINE NEGATIVE (NEGATIVE); SPECIFIC GRAVITY URINE 1.016 (1.005-1.030); UROBILINOGEN URINE 0.2 E.U./dL (0.2-1.0)
[2017-07-10 08:34] LABS: *AMPHETAMINES SCREEN URINE NEGATIVE (NEGATIVE); *BARBITURATES SCREEN URINE NEGATIVE (NEGATIVE); *BENZODIAZEPINES SCREEN URINE NEGATIVE (NEGATIVE)
[2017-07-10 08:35] LABS: *COCAINE SCREEN URINE NEGATIVE (NEGATIVE); CANNABINOID URINE SCREEN PRESUMTIVE POSITIVE (NEGATIVE); METHADONE URINE SCREEN NEGATIVE (NEGATIVE); OPIATES URINE SCREEN NEGATIVE (NEGATIVE); PHENCYCLIDINE URINE SCREEN NEGATIVE (NEGATIVE)
[2017-07-10 08:50] VITALS: BP 140/75
== END 2017-07-10 08:59 | disposition home or self-care (01) ==
LOC: ER 05:30
DX: N39.0 Urinary tract infection, site not specified (principal); R11.2 Nausea with vomiting, unspecified; I10 Essential (primary) hypertension; E11.9 Type 2 diabetes mellitus without complications; Z98.890 Other specified postprocedural states; Z98.51 Tubal ligation status; Z87.11 Personal history of peptic ulcer disease; Z79.4 Long term (current) use of insulin
CPT/HCPCS: 36415; 80053; 80305; 81003; 81025; 83690; 85025; 85610; 87086; 96361; 96374; 96375; 99285; J2270; J2405; J3490; J7030; Z7610

== ENCOUNTER 2017-08-10 08:00 | Emergency (ER) | payer MEDICAID ==
[~2017-08-10] VITALS: Ht 165.1 cm; Wt 80.0 kg
[2017-08-10] MEDS ORDERED: SODIUM CHLORIDE 0.9% 1,000 ML IV ONE (09:15)
[2017-08-10] MEDS ORDERED: MORPHINE SULFATE 4 MG/ML CPJ (NOT FOR IM USE) IV ONE (09:15)
[2017-08-10] MEDS ORDERED: FAMOTIDINE 20MG/2ML VIAL IV ONE (09:15)
[2017-08-10] MEDS ORDERED: METOCLOPRAMIDE HCL 10MG/2ML VIAL IV ONE (09:15)
[2017-08-10 09:31] LABS: CHLORIDE 104 mEq/L (98-107)
[2017-08-10 13:35] VITALS: BP 111/69
== END 2017-08-10 13:54 | disposition home or self-care (01) ==
LOC: ER 08:24
DX: K29.00 Acute gastritis without bleeding (principal); I10 Essential (primary) hypertension; E11.9 Type 2 diabetes mellitus without complications; G40.909 Epilepsy, unspecified, not intractable, without status epilepticus; K21.9 Gastro-esophageal reflux disease without esophagitis; Z79.4 Long term (current) use of insulin; Z87.11 Personal history of peptic ulcer disease
CPT/HCPCS: 36415; 80048; 81025; 82962; 83690; 96361; 96374; 96375; 99284; J2270; J2765; J3490; J7030; Z7610

== ENCOUNTER 2017-09-01 13:30 | Emergency (ER) | payer MEDICAID, OTHER ==
[~2017-09-01] VITALS: Ht 162.6 cm; Wt 65.0 kg
[2017-09-01] MEDS ORDERED: KETOROLAC 30MG/ML VIAL IV STA (14:18)
[2017-09-01] MEDS ORDERED: SODIUM CHLORIDE 0.9% 1,000 ML IV ONE (14:18)
[2017-09-01] MEDS ORDERED: ONDANSETRON HCL 4MG/2ML VIAL IV STA (14:18)
[2017-09-01] MEDS ORDERED: LORAZEPAM 2MG/ML CPJ IV ONE (14:30)
[2017-09-01 15:02] LABS: BASOPHILS % 0.6 % (0.0-2.0); EOSINOPHILS % 0.7 % (0.0-5.0); HEMATOCRIT. 38.2 % (36.0-48.0); HEMOGLOBIN. 13.1 g/dL (12.0-16.0); LYMPHOCYTES % 16.9 % (20.0-50.0); MEAN CORPUSCULAR HEMOGLOBIN 26.8 pg (28.0-32.0); MEAN CORPUSCULAR VOLUME 78.2 fL (81.0-99.0); MEAN PLATELET VOLUME 8.9 fl (7.4-10.4); MONOCYTES % 3.9 % (2.0-8.0); NEUTROPHILS % 77.9 % (40.0-76.0); PLATELET 234 x1000/uL (130-400); RED BLOOD CELL COUNT 4.88 mill/uL (4.2-5.4); RED CELL DISTRIBUTION WIDTH 15.1 % (11.6-14.6)
[2017-09-01 15:04] LABS: CHLORIDE 100 mEq/L (98-107)
[2017-09-01 15:05] LABS: PROTHROMBIN TIME 10.7 sec (9.4-11.6)
[2017-09-01 15:09] LABS: ETHANOL BLOOD < 10 mg/dL
[2017-09-01 15:49] LABS: CLARITY URINE CLOUDY (CLEAR); COLOR URINE RED (YELLOW); KETONES URINE 1+ (NEGATIVE); LEUKOCYTE ESTERASE URINE 1+ (NEGATIVE); NITRITE URINE NEGATIVE (NEGATIVE); OCCULT BLOOD URINE 3+ (NEGATIVE); PH URINE >=9.0 (4.5-8.0); PROTEIN URINE 1+ (NEGATIVE); SPECIFIC GRAVITY URINE 1.014 (1.005-1.030); UROBILINOGEN URINE 0.2 E.U./dL (0.2-1.0)
[2017-09-01 16:15] LABS: *AMPHETAMINES SCREEN URINE NEGATIVE (NEGATIVE); *BARBITURATES SCREEN URINE NEGATIVE (NEGATIVE); *BENZODIAZEPINES SCREEN URINE NEGATIVE (NEGATIVE); *COCAINE SCREEN URINE NEGATIVE (NEGATIVE)
[2017-09-01 16:17] LABS: METHADONE URINE SCREEN NEGATIVE (NEGATIVE); PHENCYCLIDINE URINE SCREEN NEGATIVE (NEGATIVE)
[2017-09-01 16:19] LABS: CANNABINOID URINE SCREEN PRESUMTIVE POSITIVE (NEGATIVE); OPIATES URINE SCREEN PRESUMTIVE POSITIVE (NEGATIVE)
[2017-09-01] MEDS ORDERED: MORPHINE SULFATE 4 MG/ML CPJ (NOT FOR IM USE) IV ONE ×2 (16:30→18:00)
[2017-09-01] MEDS ORDERED: ONDANSETRON HCL 4MG/2ML VIAL IV ONE (18:00)
[2017-09-01 19:03] VITALS: BP 204/110
== END 2017-09-01 19:10 | disposition home or self-care (01) ==
LOC: ER 13:30
DX: N30.00 Acute cystitis without hematuria (principal); E11.9 Type 2 diabetes mellitus without complications; I10 Essential (primary) hypertension; Z79.899 Other long term (current) drug therapy
CPT/HCPCS: 36415; 74176; 80053; 80305; 81003; 81025; 82962; 83690; 85025; 85610; 96361; 96374; 96375; 96376; 99285; G0482; J1885; J2060; J2270; J2405; J7030; Z7610

== ENCOUNTER 2017-09-30 00:23 | Emergency (ER) | payer OTHER ==
[~2017-09-30] VITALS: Ht 165.1 cm; Wt 80.0 kg
[2017-09-30] MEDS ORDERED: METOCLOPRAMIDE HCL 10MG/2ML VIAL IV STA (02:18)
[2017-09-30] MEDS ORDERED: FAMOTIDINE 20MG/2ML VIAL IV STA (02:18)
[2017-09-30] MEDS ORDERED: VISCOUS LIDOCAINE 2% 15 ML UDC PO STA (02:18)
[2017-09-30] MEDS ORDERED: ONDANSETRON HCL 4MG/2ML VIAL IV STA (02:18)
[2017-09-30] MEDS ORDERED: MAGNESIUM/ALUMINUM HYDROXIDE/SIMETHICONE 30ML UDC PO STA (02:18)
[2017-09-30] MEDS ORDERED: DICYCLOMINE 10 MG/5 ML ORAL SYR PO STA (02:18)
[2017-09-30 02:45] LABS: CHLORIDE 109 mEq/L (98-107)
[2017-09-30 02:46] LABS: BASOPHILS % 0.7 % (0.0-2.0); EOSINOPHILS % 2.5 % (0.0-5.0); HEMATOCRIT. 35.1 % (36.0-48.0); HEMOGLOBIN. 11.9 g/dL (12.0-16.0); LYMPHOCYTES % 26.8 % (20.0-50.0); MEAN CORPUSCULAR HEMOGLOBIN 27.4 pg (28.0-32.0); MEAN CORPUSCULAR VOLUME 80.8 fL (81.0-99.0); MEAN PLATELET VOLUME 9.2 fl (7.4-10.4); MONOCYTES % 8.4 % (2.0-8.0); NEUTROPHILS % 61.6 % (40.0-76.0); PLATELET 216 x1000/uL (130-400); RED BLOOD CELL COUNT 4.35 mill/uL (4.2-5.4); RED CELL DISTRIBUTION WIDTH 15.6 % (11.6-14.6)
[2017-09-30 02:47] LABS: INR 1.1; PROTHROMBIN TIME 10.9 sec (9.4-11.6)
[2017-09-30 02:52] LABS: CLARITY URINE CLEAR (CLEAR); COLOR URINE YELLOW (YELLOW); KETONES URINE NEGATIVE (NEGATIVE); LEUKOCYTE ESTERASE URINE 1+ (NEGATIVE); NITRITE URINE NEGATIVE (NEGATIVE); OCCULT BLOOD URINE NEGATIVE (NEGATIVE); PROTEIN URINE 1+ (NEGATIVE); SPECIFIC GRAVITY URINE 1.016 (1.005-1.030); UROBILINOGEN URINE 0.2 E.U./dL (0.2-1.0)
[2017-09-30] MEDS ORDERED: KETOROLAC 30MG/ML VIAL IV ONE (04:15)
[2017-09-30] MEDS ORDERED: POTASSIUM CHLORIDE 20MEQ TABLET SR PO NR (05:15)
[2017-09-30 05:32] VITALS: BP 130/65
== END 2017-09-30 05:35 | disposition home or self-care (01) ==
LOC: ER 00:23
DX: K29.70 Gastritis, unspecified, without bleeding (principal); E11.9 Type 2 diabetes mellitus without complications; I10 Essential (primary) hypertension; G40.909 Epilepsy, unspecified, not intractable, without status epilepticus; Z90.49 Acquired absence of other specified parts of digestive tract; Z87.11 Personal history of peptic ulcer disease; Z98.51 Tubal ligation status
CPT/HCPCS: 36415; 71045; 76830; 76856; 80053; 81003; 81025; 83690; 84702; 85025; 85610; 93005; 96374; 96375; 99285; J1885; J2405; J2765; J3490

== ENCOUNTER 2018-05-28 12:39 | Inpatient (IN) | payer MEDICAID ==
[~2018-05-28] VITALS: Ht 165.1 cm; Wt 113.9 kg
[~2018-05-28 12:39] MED LIST changes: -LEVVL SQ; -TRAZ-129 PO; +TRAZ-212 PO
[2018-05-28] MEDS ORDERED: MAGNESIUM/ALUMINUM HYDROXIDE/SIMETHICONE 30ML UDC PO STA (13:22)
[2018-05-28] MEDS ORDERED: FAMOTIDINE 20MG/2ML VIAL IV STA (13:22)
[2018-05-28] MEDS ORDERED: VISCOUS LIDOCAINE 2% 15 ML UDC PO STA (13:22)
[2018-05-28] MEDS ORDERED: PANTOPRAZOLE SODIUM 40 MG/VIAL IV ONE (13:30)
[2018-05-28] MEDS ORDERED: SODIUM CHLORIDE 0.9% 1,000 ML IV ONE (13:30)
[2018-05-28] MEDS ORDERED: ONDANSETRON HCL 4MG/2ML INJ IV ONE (13:45)
[2018-05-28 14:07] LABS: HEMATOCRIT. 42.9 % (36.0-48.0); HEMOGLOBIN. 14.3 g/dL (12.0-16.0); MEAN CORPUSCULAR HEMOGLOBIN 27.4 pg (28.0-32.0); MEAN CORPUSCULAR VOLUME 82.2 fL (81.0-99.0); MEAN PLATELET VOLUME 8.8 fl (7.4-10.4); PLATELET 273 x1000/uL (130-400); RED BLOOD CELL COUNT 5.21 mill/uL (4.2-5.4); RED CELL DISTRIBUTION WIDTH 14.8 % (11.6-14.6)
[2018-05-28 14:09] LABS: CHLORIDE 95 mEq/L (98-107)
[2018-05-28 14:14] LABS: PROTHROMBIN TIME 10.4 sec (9.1-11.1)
[2018-05-28 14:47] LABS: CLARITY URINE CLEAR (CLEAR); COLOR URINE YELLOW (YELLOW); KETONES URINE 3+ (NEGATIVE); LEUKOCYTE ESTERASE URINE NEGATIVE (NEGATIVE); NITRITE URINE NEGATIVE (NEGATIVE); OCCULT BLOOD URINE 1+ (NEGATIVE); PROTEIN URINE 2+ (NEGATIVE); SPECIFIC GRAVITY URINE 1.035 (1.005-1.030); UROBILINOGEN URINE 0.2 E.U./dL (0.2-1.0)
[2018-05-28 14:49] LABS: PLATELET ESTIMATE NORMAL
[2018-05-28] MEDS ORDERED: INSULIN REGULAR (HUMULIN R) 300UNITS/3ML SUBCUT NR (15:00)
[2018-05-28] MEDS ORDERED: MORPHINE SULFATE 4 MG/ML CPJ (NOT FOR IM USE) IV NR (15:00)
[2018-05-28 15:11] LABS: *AMPHETAMINES SCREEN URINE NEGATIVE (NEGATIVE); *BARBITURATES SCREEN URINE NEGATIVE (NEGATIVE); *BENZODIAZEPINES SCREEN URINE NEGATIVE (NEGATIVE)
[2018-05-28 15:12] LABS: *COCAINE SCREEN URINE NEGATIVE (NEGATIVE); METHADONE URINE SCREEN NEGATIVE (NEGATIVE); PHENCYCLIDINE URINE SCREEN NEGATIVE (NEGATIVE)
[2018-05-28 15:14] LABS: CANNABINOID URINE SCREEN PRESUMTIVE POSITIVE (NEGATIVE); OPIATES URINE SCREEN PRESUMTIVE POSITIVE (NEGATIVE)
[2018-05-28] MEDS ORDERED: METOCLOPRAMIDE HCL 10MG/2ML VIAL IV ONE (16:30)
[2018-05-28] MEDS ORDERED: LABETALOL 5MG/ML SYR 20 MG/4 ML SYRINGE IV ONE (16:30)
[2018-05-28] MEDS ORDERED: FLUCONAZOLE 150MG TABLET PO NR (17:30)
[2018-05-28] MEDS ORDERED: LABETALOL 5MG/ML SYR 20 MG/4 ML SYRINGE IV NR (17:30)
[2018-05-28] MEDS ORDERED: HYDRALAZINE 20MG/ML VIAL IV NR (18:30)
[2018-05-28] MEDS ORDERED: ONDANSETRON HCL 4MG/2ML INJ IV PRN (18:30)
[2018-05-28] MEDS ORDERED: ZOLPIDEM TARTRATE 5MG TABLET PO PRN (18:30)
[2018-05-28] MEDS ORDERED: CLONIDINE 0.1MG TABLET PO PRN (18:30)
[2018-05-28] MEDS ORDERED: HYDRALAZINE 20MG/ML VIAL IV PRN (18:30)
[2018-05-28] MEDS ORDERED: DEXTROSE 50% WATER 50ML SYRINGE IV PRN (18:30)
[2018-05-28] MEDS ORDERED: LOSARTAN POTASSIUM 50 MG TABLET PO NR (19:30)
[2018-05-28] MEDS: SODIUM CHLORIDE 0.9% 1,000 ML IV SCH (20:15)
[2018-05-28] MEDS: AMLODIPINE 5MG TABLET PO SCH (20:30)
[2018-05-28] MEDS ORDERED: INSULIN REGULAR (HUMULIN R) 300UNITS/3ML ONE (22:31)
[2018-05-28] MEDS: ACETAMINOPHEN 325MG TABLET PO PRN (22:57)
[2018-05-28] MEDS ORDERED: INSULIN GLARGINE UD 100 UNITS/ML SYR SUBCUT SCH (23:00)
[2018-05-29] VITALS (7 sets, daily range): BP systolic 104–151; BP diastolic 56–92
[2018-05-29] MEDS: HYDROCODONE/ACETAMINOPHEN 5/325MG TABLET PO PRN ×2 (02:37→16:47)
[2018-05-29] MEDS: SODIUM CHLORIDE 0.9% 1,000 ML IV SCH ×2 (05:31→23:18)
[2018-05-29] MEDS: METOCLOPRAMIDE HCL 10MG/2ML VIAL IV SCH ×4 (05:31→23:18)
[2018-05-29] MEDS: BLOOD SUGAR DIAGNOSTIC STRIP TEST SCH ×4 (05:47→20:47)
[2018-05-29] MEDS: INSULIN LISPRO 100 UNITS/ML SUBCUT SCH ×4 (06:20→20:59)
[2018-05-29 07:18] LABS: BASOPHILS % 0.7 % (0.0-2.0); CHLORIDE 101 mEq/L (98-107); EOSINOPHILS % 0.3 % (0.0-5.0); HEMOGLOBIN. 11.8 g/dL (12.0-16.0); LYMPHOCYTES % 14.9 % (20.0-50.0); MEAN CORPUSCULAR HEMOGLOBIN 26.8 pg (28.0-32.0); MEAN CORPUSCULAR VOLUME 81.7 fL (81.0-99.0); MONOCYTES % 6.2 % (2.0-8.0); NEUTROPHILS % 77.9 % (40.0-76.0); RED BLOOD CELL COUNT 4.41 mill/uL (4.2-5.4)
[2018-05-29] MEDS: AMLODIPINE 5MG TABLET PO SCH (09:00)
[2018-05-29] MEDS ORDERED: LOSARTAN POTASSIUM 50 MG TABLET PO SCH (09:00)
[2018-05-29] MEDS: PANTOPRAZOLE SODIUM 40 MG/VIAL IV SCH (09:24)
[2018-05-29] MEDS ORDERED: INSULIN GLARGINE UD 100 UNITS/ML SYR SUBCUT SCH (10:00)
[2018-05-29] MEDS ORDERED: PNEUMOCOCCAL 23-VAL P-SAC VAC 0.5 ML IM ONE (10:00)
[2018-05-29 10:32] LABS: PLATELET 248 x1000/uL (130-400)
[2018-05-29 10:34] LABS: MEAN PLATELET VOLUME 9.1 fl (7.4-10.4)
[2018-05-29] MEDS ORDERED: POTASSIUM CHLORIDE INJ 40 MEQ in DEXT 5% WATER 250 ML IV NR (13:00)
[2018-05-29] MEDS: CARVEDILOL 6.25 MG TABLET PO SCH (20:56)
[2018-05-29] MEDS: ACETAMINOPHEN 325MG TABLET PO PRN (21:56)
[2018-05-29] MEDS: INSULIN GLARGINE UD 100 UNITS/ML SYR SUBCUT SCH (23:26)
[2018-05-30] VITALS: BP 117/54
[2018-05-30 04:00] VITALS: BP 114/66
[2018-05-30] MEDS: BLOOD SUGAR DIAGNOSTIC STRIP TEST SCH ×2 (05:51→11:46)
[2018-05-30] MEDS: METOCLOPRAMIDE HCL 10MG/2ML VIAL IV SCH ×2 (06:01→12:01)
[2018-05-30] MEDS: INSULIN LISPRO 100 UNITS/ML SUBCUT SCH ×2 (06:26→12:01)
[2018-05-30 07:26] LABS: CHLORIDE 108 mEq/L (98-107)
[2018-05-30 07:34] LABS: BASOPHILS % 0.4 % (0.0-2.0); HEMATOCRIT. 34.7 % (36.0-48.0); HEMOGLOBIN. 11.6 g/dL (12.0-16.0); LYMPHOCYTES % 30.4 % (20.0-50.0); MEAN CORPUSCULAR HEMOGLOBIN 27.2 pg (28.0-32.0); MEAN CORPUSCULAR VOLUME 81.8 fL (81.0-99.0); MEAN PLATELET VOLUME 8.5 fl (7.4-10.4); MONOCYTES % 5.5 % (2.0-8.0); NEUTROPHILS % 62.7 % (40.0-76.0); PLATELET 216 x1000/uL (130-400); RED BLOOD CELL COUNT 4.24 mill/uL (4.2-5.4); RED CELL DISTRIBUTION WIDTH 14.7 % (11.6-14.6)
[2018-05-30] MEDS: HYDROCODONE/ACETAMINOPHEN 5/325MG TABLET PO PRN (07:54)
[2018-05-30 07:57] VITALS: BP 158/83
[2018-05-30] MEDS ORDERED: LOSARTAN POTASSIUM 50 MG TABLET PO SCH (09:00)
[2018-05-30] MEDS: PANTOPRAZOLE SODIUM 40 MG/VIAL IV SCH (09:26)
[2018-05-30] MEDS: CARVEDILOL 6.25 MG TABLET PO SCH (09:26)
[2018-05-30] MEDS: INSULIN GLARGINE UD 100 UNITS/ML SYR SUBCUT SCH (09:36)
[2018-05-30 12:00] VITALS: BP 145/83
[2018-05-30 12:31] VITALS: BP 145/83
== END 2018-05-30 12:51 | disposition home or self-care (01) | DRG 199 ==
LOC: ER 12:39 → 5WST 17:49 → ENRESERV 22:25
PROVIDERS: ADMIT Internal Medicine; ATTEND Internal Medicine
DX: I16.0 Hypertensive urgency (principal); I50.22 Chronic systolic (congestive) heart failure; K31.84 Gastroparesis; E11.65 Type 2 diabetes mellitus with hyperglycemia; E11.43 Type 2 diabetes mellitus with diabetic autonomic (poly)neuropathy; Z68.41 Body mass index [BMI] 40.0-44.9, adult; K52.9 Noninfective gastroenteritis and colitis, unspecified; I11.0 Hypertensive heart disease with heart failure; K76.0 Fatty (change of) liver, not elsewhere classified; E66.9 Obesity, unspecified; G40.909 Epilepsy, unspecified, not intractable, without status epilepticus; F12.90 Cannabis use, unspecified, uncomplicated; I25.10 Atherosclerotic heart disease of native coronary artery without angina pectoris; I25.2 Old myocardial infarction; Z87.11 Personal history of peptic ulcer disease; Z90.49 Acquired absence of other specified parts of digestive tract; Z79.4 Long term (current) use of insulin
CPT/HCPCS: 36415; 74176; 80048; 80305; 82962; 83036; 90732; 93005; 93970; 99285; C9113; J0360; J1815; J2270; J2405; J2765; J3480; J3490; J7030; J7060

== ENCOUNTER 2018-07-14 12:50 | Inpatient (IN) | payer MEDICAID ==
[~2018-07-14] VITALS: Ht 165.1 cm; Wt 114.3 kg
[~2018-07-14 12:50] MED LIST changes: -FAMO40TA70 PO
[2018-07-14] MEDS ORDERED: MORPHINE SULFATE 4 MG/ML CPJ (NOT FOR IM USE) IV STA (13:05)
[2018-07-14] MEDS ORDERED: FAMOTIDINE 20MG/2ML VIAL IV STA (13:05)
[2018-07-14] MEDS ORDERED: SODIUM CHLORIDE 0.9% 1,000 ML IV ONE (13:05)
[2018-07-14] MEDS ORDERED: ONDANSETRON HCL 4MG/2ML INJ IV STA (13:05)
[2018-07-14] MEDS ORDERED: LABETALOL 5MG/ML SYR 20 MG/4 ML SYRINGE IV ONE (13:15)
[2018-07-14 13:24] LABS: HEMATOCRIT. 44.3 % (36.0-48.0); HEMOGLOBIN. 14.8 g/dL (12.0-16.0); MEAN CORPUSCULAR HEMOGLOBIN 27.5 pg (28.0-32.0); MEAN CORPUSCULAR VOLUME 82.8 fL (81.0-99.0); MEAN PLATELET VOLUME 9.1 fl (7.4-10.4); PLATELET 255 x1000/uL (130-400); RED BLOOD CELL COUNT 5.36 mill/uL (4.2-5.4); RED CELL DISTRIBUTION WIDTH 14.4 % (11.6-14.6)
[2018-07-14 13:30] LABS: CHLORIDE 89 mEq/L (98-107)
[2018-07-14 13:35] LABS: ETHANOL BLOOD < 10 mg/dL
[2018-07-14 13:36] LABS: HCG SCREEN NEGATIVE
[2018-07-14 13:39] LABS: PROTHROMBIN TIME 10.7 sec (9.6-11.0)
[2018-07-14] MEDS ORDERED: INSULIN REGULAR (HUMULIN R) 300UNITS/3ML IV ONE ×2 (14:00→16:30)
[2018-07-14 14:20] LABS: BG BASE EXCESS -3.8 mmol/L (-2.0-2.0); BG CARBOXYHEMOGLOBIN 1.5 % (0.5-1.5); BG FRACTION INSPIRED OXYGEN 21; BG HCO3 ACT 19.4 mmol/L (22.0-26.0); BG OXYGEN SATURATION 92.9 % (92.0-98.5); BG OXYHEMOGLOBIN 91.5 % (94.0-97.0); BG PCO2 30.6 mmHg (35.0-45.0); BG PH 7.421 (7.350-7.450); BG PO2 64.7 mmHg (75.0-100.0); BG SAMPLE SITE RIGHT RADIAL; BG TOTAL HEMOGLOBIN 14.2 g/dL (12.0-18.0); BG VENT MODE ROOM AIR
[2018-07-14 15:09] LABS: CLARITY URINE CLEAR (CLEAR); COLOR URINE YELLOW (YELLOW); KETONES URINE 3+ (NEGATIVE); LEUKOCYTE ESTERASE URINE NEGATIVE (NEGATIVE); NITRITE URINE NEGATIVE (NEGATIVE); OCCULT BLOOD URINE TRACE (NEGATIVE); PROTEIN URINE 1+ (NEGATIVE); UROBILINOGEN URINE 0.2 E.U./dL (0.2-1.0)
[2018-07-14] MEDS ORDERED: FUROSEMIDE 20MG/2ML VIAL IVP ONE (15:15)
[2018-07-14 15:21] LABS: *BENZODIAZEPINES SCREEN URINE NEGATIVE (NEGATIVE); *COCAINE SCREEN URINE NEGATIVE (NEGATIVE)
[2018-07-14 15:22] LABS: *AMPHETAMINES SCREEN URINE NEGATIVE (NEGATIVE); *BARBITURATES SCREEN URINE NEGATIVE (NEGATIVE); METHADONE URINE SCREEN NEGATIVE (NEGATIVE); PHENCYCLIDINE URINE SCREEN NEGATIVE (NEGATIVE)
[2018-07-14 15:25] LABS: CANNABINOID URINE SCREEN PRESUMTIVE POSITIVE (NEGATIVE); OPIATES URINE SCREEN PRESUMTIVE POSITIVE (NEGATIVE)
[2018-07-14] MEDS ORDERED: DIPHENHYDRAMINE 50MG/ML VIAL IV PRN (15:30)
[2018-07-14] MEDS ORDERED: CLONIDINE 0.1MG TABLET PO PRN (15:30)
[2018-07-14] MEDS ORDERED: DOCUSATE SODIUM 100MG CAPSULE PO PRN (15:30)
[2018-07-14] MEDS ORDERED: INSULIN REGULAR (DRIP) 100 UNITS in SODIUM CHLORIDE 0.9% 100 ML IV ONE ×2 (15:30→16:45)
[2018-07-14] MEDS ORDERED: GUAIFENESIN 200MG/10ML SUGAR FREE UDC PO PRN (15:30)
[2018-07-14] MEDS ORDERED: IPRATROPIUM/ALBUTEROL 0.5-3(2.5)MG/3ML NEB INH PRN ×2 (15:30)
[2018-07-14] MEDS ORDERED: MAGNESIUM/ALUMINUM HYDROXIDE/SIMETHICONE 30ML UDC PO PRN (15:30)
[2018-07-14] MEDS ORDERED: ACETAMINOPHEN 325MG TABLET PO PRN (15:30)
[2018-07-14 16:24] LABS: PLATELET ESTIMATE NORMAL
[2018-07-14 16:39] LABS: CHLORIDE 95 mEq/L (98-107)
[2018-07-14] MEDS ORDERED: INSULIN REGULAR (DRIP) 100 UNITS in SODIUM CHLORIDE 0.9% 99 ML IV ONE (16:45)
[2018-07-14 16:48] LABS: LDL CHOLESTEROL 56 mg/dL (5-100)
[2018-07-14 16:49] LABS: HDL CHOLESTEROL 100 mg/dL (40-59)
[2018-07-14 17:07] LABS: HEPATITIS B SURFACE ANTIGEN NEGATIVE
[2018-07-14 17:37] LABS: HEPATITIS A AB IGM NEGATIVE (NEGATIVE)
[2018-07-14 17:50] VITALS: BP 151/47
[2018-07-14] MEDS ORDERED: DEXTROSE 50% WATER 50ML SYRINGE IV PRN (18:30)
[2018-07-14] MEDS: HYDROCODONE/ACETAMINOPHEN 5/325MG TABLET PO PRN (19:18)
[2018-07-14] MEDS: ENOXAPARIN 30MG/0.3ML SYR SUBCUT SCH (19:19)
[2018-07-14 20:00] VITALS: BP 103/60
[2018-07-14] MEDS: BLOOD SUGAR DIAGNOSTIC STRIP TEST SCH (20:00)
[2018-07-14] MEDS: CARVEDILOL 3.125 MG TABLET PO SCH (20:17)
[2018-07-14] MEDS: INSULIN LISPRO 100 UNITS/ML SUBCUT SCH (20:17)
[2018-07-14] MEDS: LISINOPRIL 20MG TABLET PO SCH (20:18)
[2018-07-14] MEDS: AMLODIPINE 5MG TABLET PO SCH (20:18)
[2018-07-14] MEDS ORDERED: MORPHINE SULFATE 2 MG/ML CPJ (NOT FOR IM USE) IV PRN (20:45)
[2018-07-14] MEDS: ONDANSETRON HCL 4MG/2ML INJ IV PRN (20:56)
[2018-07-14 21:12] LABS: CHLORIDE 91 mEq/L (98-107)
[2018-07-14] MEDS: SODIUM CHLORIDE 0.9% 1,000 ML IV SCH (21:12)
[2018-07-14] MEDS: MORPHINE SULFATE 4 MG/ML CPJ (NOT FOR IM USE) IV PRN (21:20)
[2018-07-14 22:00] VITALS: BP 122/74
[2018-07-14] MEDS ORDERED: INSULIN GLARGINE UD 100 UNITS/ML SYR SUBCUT SCH (22:00)
[2018-07-14] MEDS ORDERED: FLUCONAZOLE 150MG TABLET PO NR (23:00)
[2018-07-15] VITALS (12 sets, daily range): BP systolic 99–159; BP diastolic 48–98
[2018-07-15] MEDS: INSULIN LISPRO 100 UNITS/ML SUBCUT SCH ×9 (00:17→21:27)
[2018-07-15] MEDS: INSULIN GLARGINE UD 100 UNITS/ML SYR SUBCUT SCH ×2 (00:18→21:28)
[2018-07-15] MEDS: CARVEDILOL 3.125 MG TABLET PO SCH ×2 (00:40→21:17)
[2018-07-15 00:51] LABS: CHLORIDE 94 mEq/L (98-107)
[2018-07-15] MEDS: MORPHINE SULFATE 4 MG/ML CPJ (NOT FOR IM USE) IV PRN ×6 (01:16→23:25)
[2018-07-15] MEDS: BLOOD SUGAR DIAGNOSTIC STRIP TEST SCH ×6 (04:00→21:00)
[2018-07-15] MEDS: HYDROCODONE/ACETAMINOPHEN 5/325MG TABLET PO PRN (04:30)
[2018-07-15 05:55] LABS: BASOPHILS % 0.2 % (0.0-2.0); EOSINOPHILS % 0.1 % (0.0-5.0); LYMPHOCYTES % 10.2 % (20.0-50.0); MEAN CORPUSCULAR HEMOGLOBIN 27.6 pg (28.0-32.0); MEAN CORPUSCULAR VOLUME 80.8 fL (81.0-99.0); MEAN PLATELET VOLUME 8.8 fl (7.4-10.4); MONOCYTES % 5.5 % (2.0-8.0); PLATELET 246 x1000/uL (130-400); RED BLOOD CELL COUNT 4.71 mill/uL (4.2-5.4); RED CELL DISTRIBUTION WIDTH 14.8 % (11.6-14.6)
[2018-07-15 06:20] LABS: CHLORIDE 94 mEq/L (98-107)
[2018-07-15] MEDS: ENOXAPARIN 30MG/0.3ML SYR SUBCUT SCH ×2 (06:29→18:58)
[2018-07-15] MEDS: SUCRALFATE 1G TABLET PO SCH ×4 (06:29→21:15)
[2018-07-15 06:40] LABS: LDL CHOLESTEROL 53 mg/dL (5-100)
[2018-07-15 06:41] LABS: CREATINE KINASE 54 IU/L (26-192)
[2018-07-15 06:42] LABS: HDL CHOLESTEROL 87 mg/dL (40-59)
[2018-07-15 06:45] LABS: CREATINE KINASE MB FRACTION 1.5 ng/mL (0.5-3.6)
[2018-07-15 08:46] LABS: CHLORIDE 94 mEq/L (98-107)
[2018-07-15] MEDS: AMLODIPINE 5MG TABLET PO SCH ×2 (09:00→21:16)
[2018-07-15] MEDS: LISINOPRIL 20MG TABLET PO SCH ×2 (09:00→21:16)
[2018-07-15] MEDS ORDERED: POTASSIUM CHLORIDE 20MEQ TABLET SR PO NR (10:00)
[2018-07-15] MEDS ORDERED: DEXTROSE 50% WATER 50ML SYRINGE IV PRN ×2 (11:15→11:45)
[2018-07-15] MEDS ORDERED: BLOOD SUGAR DIAGNOSTIC STRIP TEST SCH (11:50)
[2018-07-15] MEDS ORDERED: MAGNESIUM 2 G PREMIX 50 ML IV SCH (12:00)
[2018-07-15] MEDS: ONDANSETRON HCL 4MG/2ML INJ IV PRN (15:41)
[2018-07-15] MEDS: SODIUM CHLORIDE 0.9% 1,000 ML IV SCH ×3 (16:45→21:33)
[2018-07-15] MEDS ORDERED: TRAZODONE HCL 50MG TABLET PO SCH (21:00)
[2018-07-15] MEDS ORDERED: ZOLPIDEM TARTRATE 5MG TABLET PO PRN (21:00)
[2018-07-16] VITALS (14 sets, daily range): BP systolic 83–161; BP diastolic 51–78
[2018-07-16] MEDS: MORPHINE SULFATE 4 MG/ML CPJ (NOT FOR IM USE) IV PRN ×3 (05:14→14:08)
[2018-07-16] MEDS: ENOXAPARIN 30MG/0.3ML SYR SUBCUT SCH ×2 (06:07→18:30)
[2018-07-16] MEDS: SUCRALFATE 1G TABLET PO SCH ×3 (06:07→16:23)
[2018-07-16 06:22] LABS: BASOPHILS % 0.4 % (0.0-2.0); EOSINOPHILS % 0.7 % (0.0-5.0); HEMATOCRIT. 34.8 % (36.0-48.0); HEMOGLOBIN. 11.7 g/dL (12.0-16.0); LYMPHOCYTES % 28.1 % (20.0-50.0); MEAN CORPUSCULAR HEMOGLOBIN 27.5 pg (28.0-32.0); MEAN CORPUSCULAR VOLUME 81.7 fL (81.0-99.0); MEAN PLATELET VOLUME 8.9 fl (7.4-10.4); NEUTROPHILS % 63.8 % (40.0-76.0); PLATELET 219 x1000/uL (130-400); RED BLOOD CELL COUNT 4.26 mill/uL (4.2-5.4); RED CELL DISTRIBUTION WIDTH 14.7 % (11.6-14.6)
[2018-07-16] MEDS: BLOOD SUGAR DIAGNOSTIC STRIP TEST SCH ×3 (06:35→16:22)
[2018-07-16] MEDS: INSULIN LISPRO 100 UNITS/ML SUBCUT SCH ×3 (06:36→17:06)
[2018-07-16] MEDS: LISINOPRIL 20MG TABLET PO SCH (08:31)
[2018-07-16] MEDS: AMLODIPINE 5MG TABLET PO SCH (08:31)
[2018-07-16] MEDS: CARVEDILOL 3.125 MG TABLET PO SCH (08:31)
[2018-07-16] MEDS ORDERED: INSULIN GLARGINE UD 100 UNITS/ML SYR SUBCUT SCH (10:00)
[2018-07-16] MEDS: ONDANSETRON HCL 4MG/2ML INJ IV PRN ×2 (10:08→16:23)
[2018-07-16] MEDS: SODIUM CHLORIDE 0.9% 1,000 ML IV SCH (12:45)
[2018-07-16] MEDS ORDERED: FLUC200T51 MT (14:04)
[2018-07-16] MEDS ORDERED: COR3 PO (14:04)
[2018-07-16] MEDS ORDERED: LANTUSUD SUBCUT (14:04)
[2018-07-16] MEDS ORDERED: LISI-604 PO (14:04)
[2018-07-17 04:22] LABS: HIV SCREEN 4G Non Reactive (Non Reactive)
== END 2018-07-16 20:06 | disposition home or self-care (01) | DRG 420 ==
LOC: ER 12:54 → 3WST 14:50 → EDBEDREQ 14:52 → EDBEDREQTM 14:52 → ENRESERV 15:16
PROVIDERS: ADMIT Internal Medicine; ATTEND Internal Medicine
PROC: 02HV33Z Insertion of Infusion Device into Superior Vena Cava, Percutaneous Approach (ICD-10-PCS; principal; 2018-07-16)
PROC: B548ZZA Ultrasonography of Superior Vena Cava, Guidance (ICD-10-PCS; 2018-07-16)
PROC: B5181ZA Fluoroscopy of Superior Vena Cava using Low Osmolar Contrast, Guidance (ICD-10-PCS; 2018-07-16)
DX: E11.10 Type 2 diabetes mellitus with ketoacidosis without coma (principal); I11.0 Hypertensive heart disease with heart failure; R65.10 Systemic inflammatory response syndrome (SIRS) of non-infectious origin without acute organ dysfunction; K31.84 Gastroparesis; B37.49 Other urogenital candidiasis; I50.40 Unspecified combined systolic (congestive) and diastolic (congestive) heart failure; E87.1 Hypo-osmolality and hyponatremia; F32.9 Major depressive disorder, single episode, unspecified; I25.2 Old myocardial infarction; E11.43 Type 2 diabetes mellitus with diabetic autonomic (poly)neuropathy; K25.9 Gastric ulcer, unspecified as acute or chronic, without hemorrhage or perforation; F41.9 Anxiety disorder, unspecified; K21.9 Gastro-esophageal reflux disease without esophagitis; K29.70 Gastritis, unspecified, without bleeding; Z90.49 Acquired absence of other specified parts of digestive tract; Z98.891 History of uterine scar from previous surgery; Z98.51 Tubal ligation status; Z79.4 Long term (current) use of insulin; Z87.11 Personal history of peptic ulcer disease; Z82.49 Family history of ischemic heart disease and other diseases of the circulatory system; Z83.3 Family history of diabetes mellitus
CPT/HCPCS: 36415; 36569; 36573; 36600; 71045; 74176; 80048; 80061; 80305; 80320; 82010; 82375; 82550; 82553; 82805; 82962; 83036; 83735; 83880; 84100; 84443; 84484; 84703; 86705; 86709; 86803; 87340; 87389; 93005; 93306; 96374; 96375; 97162; 97166; 99291; C1725; C1893; J1650; J1815; J1940; J2270; J2405; J3475; J3490; J7030; J7050; G0480

== ENCOUNTER 2018-08-04 17:57 | Inpatient (IN) | payer MEDICAID ==
[~2018-08-04] VITALS: Ht 165.1 cm; Wt 116.1 kg
[~2018-08-04 17:57] MED LIST changes: +COR3 PO; +FLUC200T51 MT; +LANTUSUD SUBCUT; -TRAZ-212 PO; +TRAZ-251 PO
[2018-08-04] MEDS ORDERED: METOCLOPRAMIDE HCL 10MG/2ML VIAL IV STA (18:56)
[2018-08-04] MEDS ORDERED: MAGNESIUM/ALUMINUM HYDROXIDE/SIMETHICONE 30ML UDC PO STA (18:56)
[2018-08-04] MEDS ORDERED: SODIUM CHLORIDE 0.9% 1,000 ML IV ONE (18:56)
[2018-08-04] MEDS ORDERED: MORPHINE SULFATE 4 MG/ML CPJ (NOT FOR IM USE) IV STA (18:56)
[2018-08-04] MEDS ORDERED: FAMOTIDINE 20MG/2ML VIAL IV STA (18:56)
[2018-08-04 19:21] LABS: CLARITY URINE TURBID (CLEAR); COLOR URINE YELLOW (YELLOW); KETONES URINE 1+ (NEGATIVE); LEUKOCYTE ESTERASE URINE 2+ (NEGATIVE); NITRITE URINE NEGATIVE (NEGATIVE); OCCULT BLOOD URINE 3+ (NEGATIVE); PH URINE 6.5 (4.5-8.0); PROTEIN URINE 4+ (NEGATIVE); SPECIFIC GRAVITY URINE 1.024 (1.005-1.030); UROBILINOGEN URINE 0.2 E.U./dL (0.2-1.0)
[2018-08-04] MEDS ORDERED: CEFTRIAXONE 1 G PREMIX 50 ML IV ONE (19:30)
[2018-08-04 19:32] LABS: *BARBITURATES SCREEN URINE NEGATIVE (NEGATIVE)
[2018-08-04 19:33] LABS: *AMPHETAMINES SCREEN URINE NEGATIVE (NEGATIVE); *BENZODIAZEPINES SCREEN URINE NEGATIVE (NEGATIVE); *COCAINE SCREEN URINE NEGATIVE (NEGATIVE); METHADONE URINE SCREEN NEGATIVE (NEGATIVE); PHENCYCLIDINE URINE SCREEN NEGATIVE (NEGATIVE)
[2018-08-04 19:37] LABS: BASOPHILS % 0.6 % (0.0-2.0); EOSINOPHILS % 0.4 % (0.0-5.0); HEMATOCRIT. 39.7 % (36.0-48.0); HEMOGLOBIN. 13.6 g/dL (12.0-16.0); LYMPHOCYTES % 8.9 % (20.0-50.0); MEAN CORPUSCULAR HEMOGLOBIN 27.2 pg (28.0-32.0); MEAN CORPUSCULAR VOLUME 79.8 fL (81.0-99.0); MEAN PLATELET VOLUME 8.4 fl (7.4-10.4); MONOCYTES % 4.5 % (2.0-8.0); NEUTROPHILS % 85.6 % (40.0-76.0); PLATELET 265 x1000/uL (130-400); RED BLOOD CELL COUNT 4.98 mill/uL (4.2-5.4); RED CELL DISTRIBUTION WIDTH 14.4 % (11.6-14.6)
[2018-08-04 19:39] LABS: CHLORIDE 103 mEq/L (98-107)
[2018-08-04 19:41] LABS: PROTHROMBIN TIME 10.3 sec (9.6-11.0)
[2018-08-04 19:42] LABS: HCG SCREEN NEGATIVE
[2018-08-04 19:42] LABS: CANNABINOID URINE SCREEN PRESUMTIVE POSITIVE (NEGATIVE); OPIATES URINE SCREEN PRESUMTIVE POSITIVE (NEGATIVE)
[2018-08-04 19:43] LABS: ETHANOL BLOOD < 10 mg/dL
[2018-08-04] MEDS ORDERED: ONDANSETRON HCL 4MG/2ML INJ IV ONE (20:15)
[2018-08-04] MEDS ORDERED: MORPHINE SULFATE 4 MG/ML CPJ (NOT FOR IM USE) IV ONE (20:15)
[2018-08-04] MEDS ORDERED: HYDROMORPHONE HCL/PF 2MG/ML CPJ IV ONE (21:15)
[2018-08-05] MEDS ORDERED: NA PHOS,M-B/NA PHOS,DI-BA ENEMA 118ML PR PRN (00:15)
[2018-08-05] MEDS ORDERED: HYDROCODONE/ACETAMINOPHEN 10/325MG TABLET PO PRN (00:15)
[2018-08-05] MEDS ORDERED: DIPHENHYDRAMINE 50MG/ML VIAL IV PRN (00:15)
[2018-08-05] MEDS ORDERED: IPRATROPIUM/ALBUTEROL 0.5-3(2.5)MG/3ML NEB INH PRN (00:15)
[2018-08-05] MEDS ORDERED: GUAIFENESIN 200MG/10ML SUGAR FREE UDC PO PRN (00:15)
[2018-08-05] MEDS ORDERED: MAGNESIUM/ALUMINUM HYDROXIDE/SIMETHICONE 30ML UDC PO PRN (00:15)
[2018-08-05] MEDS ORDERED: ENOXAPARIN 40MG/0.4ML SYR SUBCUT SCH (00:15)
[2018-08-05] MEDS ORDERED: DEXTROSE 50% WATER 50ML SYRINGE IV PRN (00:15)
[2018-08-05] MEDS ORDERED: HYDRALAZINE 20MG/ML VIAL IV PRN (00:15)
[2018-08-05] MEDS ORDERED: ACETAMINOPHEN 325MG TABLET PO PRN (00:15)
[2018-08-05] MEDS ORDERED: LORAZEPAM 2MG/ML CPJ IV PRN (00:15)
[2018-08-05] MEDS ORDERED: POTASSIUM CHLORIDE 20MEQ TABLET SR PO SCH (00:19)
[2018-08-05 01:00] VITALS: BP 142/80
[2018-08-05] MEDS ORDERED: HYDRALAZINE 20 MG in DEXTROSE 5% WATER 50 ML IV PRN (02:00)
[2018-08-05] MEDS ORDERED: HYDRALAZINE 10 MG in DEXTROSE 5% WATER 50 ML IV PRN (02:15)
[2018-08-05] MEDS ORDERED: LEVOFLOXACIN 500MG PREMIX 100 ML IV SCH (03:00)
[2018-08-05] MEDS: HYDROMORPHONE HCL/PF 2MG/ML CPJ IV PRN ×5 (03:53→22:17)
[2018-08-05 04:00] VITALS: BP 113/52
[2018-08-05] MEDS: SODIUM CHLORIDE 0.9% INJ 3ML FLUSH IVF SCH ×3 (06:10→21:12)
[2018-08-05] MEDS: BLOOD SUGAR DIAGNOSTIC STRIP TEST SCH ×4 (06:15→20:44)
[2018-08-05 06:37] LABS: CREATINE KINASE 55 IU/L (26-192)
[2018-08-05 06:40] LABS: CREATINE KINASE MB FRACTION < 1.0 ng/mL (0.5-3.6)
[2018-08-05 08:00] VITALS: BP 131/69
[2018-08-05] MEDS ORDERED: VANCOMYCIN 1 G PREMIX 200 ML IV ONE (08:00)
[2018-08-05] MEDS ORDERED: MEROPENEM 1,000 MG in SODIUM CHLORIDE 0.9% 100 ML IV SCH (08:00)
[2018-08-05] MEDS: ENOXAPARIN 30MG/0.3ML SYR SUBCUT SCH ×2 (08:15→20:45)
[2018-08-05] MEDS: INSULIN LISPRO 100 UNITS/ML SUBCUT SCH ×4 (08:25→21:08)
[2018-08-05] MEDS: FAMOTIDINE 20MG/2ML VIAL IV SCH ×2 (09:55→16:43)
[2018-08-05] MEDS ORDERED: VANCOMYCIN 1500MG in DEXTROSE 5% WATER 250ML IV NR (10:00)
[2018-08-05 12:00] VITALS: BP 117/74
[2018-08-05] MEDS: ONDANSETRON HCL 4MG/2ML INJ IV PRN (14:40)
[2018-08-05 16:00] VITALS: BP 139/89
[2018-08-05 17:19] LABS: CREATINE KINASE 64 IU/L (26-192)
[2018-08-05 17:20] LABS: CREATINE KINASE MB FRACTION < 1.0 ng/mL (0.5-3.6)
[2018-08-05 20:00] VITALS: BP 112/63
[2018-08-05] MEDS: VANCOMYCIN 1 G PREMIX 200 ML IV SCH (21:13)
[2018-08-06] VITALS: BP 112/59
[2018-08-06] MEDS: HYDROMORPHONE HCL/PF 2MG/ML CPJ IV PRN ×5 (03:06→23:31)
[2018-08-06] MEDS: LEVOFLOXACIN 500MG PREMIX 100 ML IV SCH (03:23)
[2018-08-06 04:00] VITALS: BP 122/74
[2018-08-06 07:50] LABS: BASOPHILS % 0.6 % (0.0-2.0); EOSINOPHILS % 3.5 % (0.0-5.0); HEMATOCRIT. 33.9 % (36.0-48.0); HEMOGLOBIN. 11.8 g/dL (12.0-16.0); LYMPHOCYTES % 27.8 % (20.0-50.0); MEAN CORPUSCULAR HEMOGLOBIN 27.9 pg (28.0-32.0); MEAN PLATELET VOLUME 8.5 fl (7.4-10.4); MONOCYTES % 8.1 % (2.0-8.0); PLATELET 250 x1000/uL (130-400); RED BLOOD CELL COUNT 4.24 mill/uL (4.2-5.4); RED CELL DISTRIBUTION WIDTH 14.2 % (11.6-14.6)
[2018-08-06 08:00] VITALS: BP 139/77
[2018-08-06] MEDS: BLOOD SUGAR DIAGNOSTIC STRIP TEST SCH ×4 (08:07→20:38)
[2018-08-06] MEDS: INSULIN LISPRO 100 UNITS/ML SUBCUT SCH ×4 (08:17→20:47)
[2018-08-06 08:22] LABS: CHLORIDE 103 mEq/L (98-107)
[2018-08-06] MEDS: ENOXAPARIN 30MG/0.3ML SYR SUBCUT SCH ×2 (09:10→20:29)
[2018-08-06] MEDS: FAMOTIDINE 20MG/2ML VIAL IV SCH ×2 (09:10→17:28)
[2018-08-06] MEDS: VANCOMYCIN 1 G PREMIX 200 ML IV SCH ×2 (09:10→21:22)
[2018-08-06 12:00] VITALS: BP 126/74
[2018-08-06 16:00] VITALS: BP 135/81
[2018-08-06 20:00] VITALS: BP 102/59
[2018-08-06] MEDS: SODIUM CHLORIDE 0.9% INJ 3ML FLUSH IVF SCH (21:23)
[2018-08-07 00:08] VITALS: BP 141/69
[2018-08-07] MEDS: HYDROMORPHONE HCL/PF 2MG/ML CPJ IV PRN ×7 (03:02→21:52)
[2018-08-07] MEDS: LEVOFLOXACIN 500MG PREMIX 100 ML IV SCH (03:10)
[2018-08-07 04:00] VITALS: BP 136/71
[2018-08-07] MEDS: SODIUM CHLORIDE 0.9% INJ 3ML FLUSH IVF SCH ×3 (06:21→21:01)
[2018-08-07] MEDS: BLOOD SUGAR DIAGNOSTIC STRIP TEST SCH ×4 (06:37→21:01)
[2018-08-07 08:00] VITALS: BP_SYST 108; BP_SYST 114; BP_DIAS 65; BP_DIAS 81
[2018-08-07] MEDS: FAMOTIDINE 20MG/2ML VIAL IV SCH ×2 (08:19→16:04)
[2018-08-07] MEDS: ENOXAPARIN 30MG/0.3ML SYR SUBCUT SCH ×2 (08:20→21:01)
[2018-08-07] MEDS: INSULIN LISPRO 100 UNITS/ML SUBCUT SCH ×4 (08:29→21:30)
[2018-08-07] MEDS: VANCOMYCIN 1 G PREMIX 200 ML IV SCH ×2 (09:04→21:53)
[2018-08-07] MEDS: ONDANSETRON HCL 4MG/2ML INJ IV PRN (11:02)
[2018-08-07 12:00] VITALS: BP 158/82
[2018-08-07] MEDS: SODIUM CHLORIDE 0.45% 1,000 ML IV SCH ×2 (12:28→21:53)
[2018-08-07] MEDS: DOCUSATE SODIUM 100MG CAPSULE PO PRN (15:29)
[2018-08-07 16:00] VITALS: BP 152/100
[2018-08-07] MEDS: CLONIDINE 0.1MG TABLET PO PRN (16:34)
[2018-08-07 20:00] VITALS: BP 106/64
[2018-08-07] MEDS: CARVEDILOL 3.125 MG TABLET PO SCH (20:58)
[2018-08-07] MEDS: LISINOPRIL 20MG TABLET PO SCH (21:00)
[2018-08-08] VITALS: BP 123/91
[2018-08-08] MEDS: HYDROMORPHONE HCL/PF 2MG/ML CPJ IV PRN ×5 (00:51→15:34)
[2018-08-08] MEDS: LEVOFLOXACIN 500MG PREMIX 100 ML IV SCH (03:03)
[2018-08-08 04:00] VITALS: BP 131/64
[2018-08-08] MEDS: SODIUM CHLORIDE 0.9% INJ 3ML FLUSH IVF SCH ×2 (05:13→14:00)
[2018-08-08] MEDS: BLOOD SUGAR DIAGNOSTIC STRIP TEST SCH ×2 (06:20→12:39)
[2018-08-08] MEDS: INSULIN LISPRO 100 UNITS/ML SUBCUT SCH ×2 (07:20→12:39)
[2018-08-08 08:00] VITALS: BP 111/68
[2018-08-08] MEDS: CARVEDILOL 3.125 MG TABLET PO SCH (08:21)
[2018-08-08] MEDS: DOCUSATE SODIUM 100MG CAPSULE PO PRN (08:31)
[2018-08-08] MEDS: LISINOPRIL 20MG TABLET PO SCH (08:31)
[2018-08-08] MEDS: FAMOTIDINE 20MG/2ML VIAL IV SCH (08:31)
[2018-08-08] MEDS: ENOXAPARIN 30MG/0.3ML SYR SUBCUT SCH (08:32)
[2018-08-08] MEDS: VANCOMYCIN 1 G PREMIX 200 ML IV SCH (09:00)
[2018-08-08] MEDS: SODIUM CHLORIDE 0.45% 1,000 ML IV SCH (09:01)
[2018-08-08] MEDS ORDERED: LACTULOSE 20G/30ML UDC PO NR (10:30)
[2018-08-08 12:00] VITALS: BP 168/109
[2018-08-08] MEDS: ONDANSETRON HCL 4MG/2ML INJ IV PRN (12:14)
[2018-08-08] MEDS: CLONIDINE 0.1MG TABLET PO PRN (12:15)
[2018-08-08 16:00] VITALS: BP 147/83
[2018-08-08 16:21] VITALS: BP 147/83
== END 2018-08-08 17:07 | disposition home or self-care (01) | DRG 463 ==
LOC: ER 18:21 → 6EST 23:15 → EDBEDREQ 23:16 → EDBEDREQSVC 23:16 → EDBEDREQTM 23:16 → ENRESERV 23:44
PROVIDERS: ADMIT Internal Medicine; ATTEND Internal Medicine
DX: N12 Tubulo-interstitial nephritis, not specified as acute or chronic (principal); R65.10 Systemic inflammatory response syndrome (SIRS) of non-infectious origin without acute organ dysfunction; E11.9 Type 2 diabetes mellitus without complications; E87.6 Hypokalemia; I10 Essential (primary) hypertension; K29.70 Gastritis, unspecified, without bleeding; Z90.49 Acquired absence of other specified parts of digestive tract; I25.2 Old myocardial infarction; Z79.4 Long term (current) use of insulin; Z79.899 Other long term (current) drug therapy
CPT/HCPCS: 36415; 71045; 74176; 80202; 80305; 80320; 82550; 82553; 82962; 83605; 84484; 84703; 87077; 87186; 93005; 96365; 96375; 99285; C1893; J0696; J1170; J1200; J1650; J1815; J1956; J2270; J2405; J2765; J3370; J3490; J7030; J7040; J7060; G0480

== ENCOUNTER 2019-01-21 21:28 | Emergency (ER) | payer MEDICAID ==
[~2019-01-21] VITALS: Ht 167.6 cm; Wt 90.0 kg
[2019-01-21] MEDS ORDERED: ONDANSETRON HCL 4MG/2ML INJ IV STA (22:32)
[2019-01-21] MEDS ORDERED: METOCLOPRAMIDE HCL 10MG/2ML VIAL IV STA (22:32)
[2019-01-21] MEDS ORDERED: MORPHINE SULFATE 4 MG/ML CPJ (NOT FOR IM USE) IV STA (22:32)
[2019-01-21] MEDS ORDERED: MAGNESIUM/ALUMINUM HYDROXIDE/SIMETHICONE 30ML UDC PO STA (22:32)
[2019-01-21] MEDS ORDERED: PANTOPRAZOLE SODIUM 40 MG/VIAL IV STA (22:32)
[2019-01-21] MEDS ORDERED: VISCOUS LIDOCAINE 2% 15 ML UDC PO STA (22:32)
[2019-01-21 23:02] LABS: BASOPHILS % 0.5 % (0.0-2.0); EOSINOPHILS % 0.9 % (0.0-5.0); HEMATOCRIT. 41.6 % (36.0-48.0); HEMOGLOBIN. 14.1 g/dL (12.0-16.0); LYMPHOCYTES % 16.2 % (20.0-50.0); MEAN CORPUSCULAR HEMOGLOBIN 26.3 pg (28.0-32.0); MEAN CORPUSCULAR VOLUME 77.7 fL (81.0-99.0); MEAN PLATELET VOLUME 8.1 fl (7.4-10.4); MONOCYTES % 5.3 % (2.0-8.0); NEUTROPHILS % 77.1 % (40.0-76.0); PLATELET 311 x1000/uL (130-400); RED BLOOD CELL COUNT 5.36 mill/uL (4.2-5.4); RED CELL DISTRIBUTION WIDTH 15.3 % (11.6-14.6)
[2019-01-21 23:07] LABS: CHLORIDE 102 mEq/L (98-107)
[2019-01-21 23:15] LABS: BETA HYDROXYBUTYRATE 1.6 mMol/L (0.0-0.3)
[2019-01-21] MEDS ORDERED: ONDANSETRON 4MG ODT PO ONE (23:45)
[2019-01-22] MEDS ORDERED: MORPHINE SULFATE 4 MG/ML CPJ (NOT FOR IM USE) IV SCH
[2019-01-22] MEDS: METOCLOPRAMIDE HCL 10MG/2ML VIAL IV SCH ×2 (00:13→00:17)
[2019-01-22] MEDS ORDERED: PROCHLORPERAZINE 10MG/2ML VIAL IM SCH (01:00)
[2019-01-22] MEDS ORDERED: DIPHENHYDRAMINE 50MG/ML VIAL IV SCH (01:00)
[2019-01-22 01:32] LABS: CLARITY URINE CLEAR (CLEAR); COLOR URINE YELLOW (YELLOW); KETONES URINE 3+ (NEGATIVE); LEUKOCYTE ESTERASE URINE NEGATIVE (NEGATIVE); NITRITE URINE NEGATIVE (NEGATIVE); OCCULT BLOOD URINE 1+ (NEGATIVE); PH URINE 5.5 (4.5-8.0); PROTEIN URINE 2+ (NEGATIVE); SPECIFIC GRAVITY URINE 1.041 (1.005-1.030); UROBILINOGEN URINE 0.2 E.U./dL (0.2-1.0)
[2019-01-22 02:06] VITALS: BP 166/91
[2019-01-22] MEDS ORDERED: INSULIN LISPRO 100 UNITS/ML SUBCUT SCH (02:15)
== END 2019-01-22 02:46 | disposition home or self-care (01) ==
LOC: ER 21:43
DX: K44.9 Diaphragmatic hernia without obstruction or gangrene (principal); E11.65 Type 2 diabetes mellitus with hyperglycemia; R05 Cough; I10 Essential (primary) hypertension; G40.909 Epilepsy, unspecified, not intractable, without status epilepticus; I25.2 Old myocardial infarction; Z86.73 Personal history of transient ischemic attack (TIA), and cerebral infarction without residual deficits; Z87.19 Personal history of other diseases of the digestive system; Z87.11 Personal history of peptic ulcer disease; Z79.4 Long term (current) use of insulin; Z90.49 Acquired absence of other specified parts of digestive tract
CPT/HCPCS: 36415; 71045; 74176; 80053; 81003; 81025; 82010; 82962; 83605; 83690; 85025; 93005; 96372; 96374; 96375; 96376; 99284; C9113; J0780; J1200; J1815; J2270; J2405; J2765; Q0162; Z7610

== ENCOUNTER 2019-01-24 20:28 | Inpatient (IN) | payer MEDICAID ==
[~2019-01-24] VITALS: Ht 165.1 cm; Wt 108.9 kg
[2019-01-24] MEDS ORDERED: SODIUM CHLORIDE 0.9% 1,000 ML IV ONE (22:54)
[2019-01-24] MEDS ORDERED: METOCLOPRAMIDE HCL 10MG/2ML VIAL IV STA (22:54)
[2019-01-24] MEDS ORDERED: MORPHINE SULFATE 4 MG/ML CPJ (NOT FOR IM USE) IV STA (22:54)
[2019-01-24] MEDS ORDERED: DIPHENHYDRAMINE 50MG/ML VIAL IV ONE (23:00)
[2019-01-24 23:54] LABS: BASOPHILS % 0.6 % (0.0-2.0); EOSINOPHILS % 0.1 % (0.0-5.0); HEMATOCRIT. 43.9 % (36.0-48.0); HEMOGLOBIN. 14.4 g/dL (12.0-16.0); LYMPHOCYTES % 7.8 % (20.0-50.0); MEAN CORPUSCULAR HEMOGLOBIN 25.9 pg (28.0-32.0); MEAN CORPUSCULAR VOLUME 79.2 fL (81.0-99.0); MEAN PLATELET VOLUME 8.3 fl (7.4-10.4); MONOCYTES % 1.8 % (2.0-8.0); NEUTROPHILS % 89.7 % (40.0-76.0); PLATELET 282 x1000/uL (130-400); RED BLOOD CELL COUNT 5.54 mill/uL (4.2-5.4); RED CELL DISTRIBUTION WIDTH 15.2 % (11.6-14.6)
[2019-01-25 00:07] LABS: CHLORIDE 100 mEq/L (98-107)
[2019-01-25 00:17] LABS: BETA HYDROXYBUTYRATE 3.6 mMol/L (0.0-0.3)
[2019-01-25] MEDS ORDERED: MORPHINE SULFATE 4 MG/ML CPJ (NOT FOR IM USE) IV ONE ×2 (00:30→04:15)
[2019-01-25] MEDS ORDERED: LORAZEPAM 2MG/ML CPJ IV ONE (00:30)
[2019-01-25] MEDS ORDERED: ONDANSETRON HCL 4MG/2ML INJ IV ONE (00:30)
[2019-01-25] MEDS ORDERED: SODIUM CHLORIDE 0.9% 1,000 ML IV ONE ×2 (00:52→03:40)
[2019-01-25] MEDS ORDERED: INSULIN REGULAR (HUMULIN R) 300UNITS/3ML SUBCUT SCH (01:00)
[2019-01-25 02:24] LABS: BG BASE EXCESS -7.4 mmol/L (-2.0-2.0); BG CARBOXYHEMOGLOBIN 1.3 % (0.5-1.5); BG DEOXYHEMOGLOBIN 4.9 % (0.0-5.0); BG FRACTION INSPIRED OXYGEN 21; BG HCO3 ACT 17.3 mmol/L (22.0-26.0); BG METHEMOGLOBIN 0.1 % (0.0-1.5); BG OXYHEMOGLOBIN 93.7 % (94.0-97.0); BG PCO2 33.2 mmHg (35.0-45.0); BG PH 7.336 (7.350-7.450); BG PO2 79.1 mmHg (75.0-100.0); BG SAMPLE SITE RIGHT BRACHIAL; BG TOTAL HEMOGLOBIN 14.3 g/dL (12.0-18.0); BG VENT MODE ROOM AIR
[2019-01-25] MEDS ORDERED: LABETALOL 5MG/ML SYR 20 MG/4 ML SYRINGE IV ONE (02:30)
[2019-01-25 03:09] LABS: CLARITY URINE CLEAR (CLEAR); COLOR URINE YELLOW (YELLOW); KETONES URINE 4+ (NEGATIVE); LEUKOCYTE ESTERASE URINE NEGATIVE (NEGATIVE); NITRITE URINE NEGATIVE (NEGATIVE); OCCULT BLOOD URINE 1+ (NEGATIVE); PH URINE 5.5 (4.5-8.0); PROTEIN URINE 1+ (NEGATIVE); SPECIFIC GRAVITY URINE 1.019 (1.005-1.030); UROBILINOGEN URINE 0.2 E.U./dL (0.2-1.0)
[2019-01-25] MEDS ORDERED: METOCLOPRAMIDE HCL 10MG/2ML VIAL IV STA (03:13)
[2019-01-25] MEDS ORDERED: MAGNESIUM/ALUMINUM HYDROXIDE/SIMETHICONE 30ML UDC PO STA (03:13)
[2019-01-25] MEDS ORDERED: INSULIN REGULAR (DRIP) 100 UNITS in SODIUM CHLORIDE 0.9% 99 ML IV SCH (03:45)
[2019-01-25] MEDS ORDERED: POTASSIUM CHLORIDE 20MEQ TABLET SR PO ONE (03:45)
[2019-01-25] MEDS ORDERED: DEXT 5%/0.45% NACL 1000ML 1,000 ML IV ONE (05:50)
[2019-01-25 06:21] LABS: CHLORIDE 101 mEq/L (98-107)
[2019-01-25] MEDS ORDERED: DIPHENHYDRAMINE 50MG/ML VIAL IV PRN (07:15)
[2019-01-25] MEDS ORDERED: NA PHOS,M-B/NA PHOS,DI-BA ENEMA 118ML PR PRN (07:15)
[2019-01-25] MEDS ORDERED: GUAIFENESIN 200MG/10ML SUGAR FREE UDC PO PRN (07:15)
[2019-01-25] MEDS ORDERED: INSULIN REGULAR (DRIP) 100 UNITS in SODIUM CHLORIDE 0.9% 100 ML IV SCH (07:15)
[2019-01-25] MEDS ORDERED: MAGNESIUM/ALUMINUM HYDROXIDE/SIMETHICONE 30ML UDC PO PRN (07:15)
[2019-01-25] MEDS ORDERED: ONDANSETRON HCL 4MG/2ML INJ IV PRN (07:15)
[2019-01-25] MEDS ORDERED: DOCUSATE SODIUM 100MG CAPSULE PO PRN (07:15)
[2019-01-25] MEDS ORDERED: IPRATROPIUM/ALBUTEROL 0.5-3(2.5)MG/3ML NEB NEB PRN (07:15)
[2019-01-25] MEDS ORDERED: ACETAMINOPHEN 325MG TABLET PO PRN (07:15)
[2019-01-25] MEDS ORDERED: CLONIDINE 0.1MG TABLET PO PRN (07:15)
[2019-01-25] MEDS: MORPHINE SULFATE 2 MG/ML CPJ (NOT FOR IM USE) IV PRN ×4 (07:46→21:26)
[2019-01-25 08:47] LABS: CHLORIDE 100 mEq/L (98-107)
[2019-01-25] MEDS: SODIUM CHLORIDE 0.45% 1,000 ML IV SCH ×2 (09:10→17:30)
[2019-01-25] MEDS ORDERED: IOHEXOL-300 100 ML BOTTLE ONE (09:15)
[2019-01-25] MEDS: LORAZEPAM 2MG/ML CPJ IV PRN (09:52)
[2019-01-25] MEDS: ENOXAPARIN 40MG/0.4ML SYR SUBCUT SCH (09:52)
[2019-01-25] MEDS: ASPIRIN 81MG EC TABLET PO SCH (09:52)
[2019-01-25] MEDS ORDERED: LEVOFLOXACIN 500MG PREMIX 100 ML IV SCH (10:00)
[2019-01-25] MEDS: HYDROCODONE/ACETAMINOPHEN 5/325MG TABLET PO PRN ×2 (10:33→14:54)
[2019-01-25] MEDS ORDERED: LISINOPRIL 10MG TABLET PO NR (11:30)
[2019-01-25] MEDS ORDERED: HYDRALAZINE 20MG/ML VIAL IV NR (11:30)
[2019-01-25 12:21] LABS: CHLORIDE 97 mEq/L (98-107)
[2019-01-25] MEDS ORDERED: MIDAZOLAM HCL 2 MG/2 ML VIAL IV SCH (12:30)
[2019-01-25] MEDS ORDERED: MORPHINE SULFATE 4 MG/ML CPJ (NOT FOR IM USE) IV SCH (12:30)
[2019-01-25] MEDS ORDERED: BENZONATATE 100MG CAPSULE PO PRN (16:30)
[2019-01-25 17:05] VITALS: BP 122/63
[2019-01-25 17:10] LABS: CHLORIDE 97 mEq/L (98-107)
[2019-01-25 17:37] VITALS: BP 122/74
[2019-01-25] MEDS ORDERED: ZOLPIDEM TARTRATE 5MG TABLET PO PRN (18:30)
[2019-01-25] MEDS: SODIUM CHLORIDE 0.9% 1,000 ML IV SCH (18:44)
[2019-01-25] MEDS ORDERED: DEXTROSE 50% WATER 50ML SYRINGE IV PRN (18:45)
[2019-01-25] MEDS ORDERED: INSULIN LISPRO 100 UNITS/ML SUBCUT ONE (19:00)
[2019-01-25] MEDS ORDERED: INSULIN LISPRO 100 UNITS/ML SUBCUT NR (19:15)
[2019-01-25 20:00] VITALS: BP 115/77
[2019-01-25] MEDS ORDERED: INSULIN LISPRO 100 UNITS/ML SUBCUT SCH (21:00)
[2019-01-25] MEDS: INSULIN LISPRO 100 UNITS/ML SUBCUT SCH (21:00)
[2019-01-25] MEDS: FLUTICASONE PROPIONATE 50MCG/SPRAY BOTTLE BOTHNSTRLS SCH (21:25)
[2019-01-25] MEDS: BLOOD SUGAR DIAGNOSTIC STRIP TEST SCH (21:42)
[2019-01-25 22:00] VITALS: BP 116/65
[2019-01-25] MEDS: INSULIN GLARGINE UD 100 UNITS/ML SYR SUBCUT SCH (22:36)
[2019-01-26] VITALS (12 sets, daily range): BP systolic 103–172; BP diastolic 63–98
[2019-01-26] MEDS: SODIUM CHLORIDE 0.9% 1,000 ML IV SCH ×3 (02:30→18:41)
[2019-01-26] MEDS: MORPHINE SULFATE 2 MG/ML CPJ (NOT FOR IM USE) IV PRN ×2 (05:13→09:26)
[2019-01-26 07:00] LABS: CHLORIDE 99 mEq/L (98-107)
[2019-01-26 07:08] LABS: LDL CHOLESTEROL 51 mg/dL (5-100)
[2019-01-26 07:10] LABS: HDL CHOLESTEROL 58 mg/dL (40-59); T4 FREE 1.16 ng/dL (0.76-1.46)
[2019-01-26 07:34] LABS: BASOPHILS % 0.3 % (0.0-2.0); EOSINOPHILS % 0.5 % (0.0-5.0); HEMATOCRIT. 36.6 % (36.0-48.0); HEMOGLOBIN. 12.1 g/dL (12.0-16.0); LYMPHOCYTES % 16.4 % (20.0-50.0); MEAN CORPUSCULAR HEMOGLOBIN 26.1 pg (28.0-32.0); MEAN CORPUSCULAR VOLUME 78.8 fL (81.0-99.0); MEAN PLATELET VOLUME 8.3 fl (7.4-10.4); MONOCYTES % 5.7 % (2.0-8.0); NEUTROPHILS % 77.1 % (40.0-76.0); PLATELET 272 x1000/uL (130-400); RED BLOOD CELL COUNT 4.65 mill/uL (4.2-5.4); RED CELL DISTRIBUTION WIDTH 15.3 % (11.6-14.6)
[2019-01-26] MEDS ORDERED: POTASSIUM CHLORIDE 20MEQ TABLET SR PO SCH (08:15)
[2019-01-26] MEDS: ASPIRIN 81MG EC TABLET PO SCH (09:16)
[2019-01-26] MEDS: ENOXAPARIN 40MG/0.4ML SYR SUBCUT SCH (09:16)
[2019-01-26] MEDS: FLUTICASONE PROPIONATE 50MCG/SPRAY BOTTLE BOTHNSTRLS SCH ×2 (09:26→22:02)
[2019-01-26 09:27] LABS: CREATINE KINASE 74 IU/L (26-192)
[2019-01-26] MEDS: INSULIN GLARGINE UD 100 UNITS/ML SYR SUBCUT SCH ×2 (10:09→23:05)
[2019-01-26] MEDS: HYDROCODONE/ACETAMINOPHEN 5/325MG TABLET PO PRN ×3 (11:58→22:12)
[2019-01-26] MEDS: BLOOD SUGAR DIAGNOSTIC STRIP TEST SCH ×3 (12:24→21:00)
[2019-01-26] MEDS: LEVOFLOXACIN 500MG PREMIX 100 ML IV SCH ×2 (12:53→12:55)
[2019-01-26] MEDS: INSULIN LISPRO 100 UNITS/ML SUBCUT SCH ×3 (12:54→23:01)
[2019-01-26] MEDS: LORAZEPAM 2MG/ML CPJ IV PRN (23:32)
[2019-01-27] VITALS (17 sets, daily range): BP systolic 91–230; BP diastolic 53–216
[2019-01-27] MEDS: SODIUM CHLORIDE 0.9% 1,000 ML IV SCH ×3 (02:30→17:38)
[2019-01-27 06:41] LABS: BASOPHILS % 0.4 % (0.0-2.0); EOSINOPHILS % 1.4 % (0.0-5.0); HEMATOCRIT. 36.6 % (36.0-48.0); HEMOGLOBIN. 12.2 g/dL (12.0-16.0); LYMPHOCYTES % 23.8 % (20.0-50.0); MEAN CORPUSCULAR HEMOGLOBIN 26.3 pg (28.0-32.0); MEAN CORPUSCULAR VOLUME 78.9 fL (81.0-99.0); MEAN PLATELET VOLUME 8.5 fl (7.4-10.4); MONOCYTES % 7.5 % (2.0-8.0); NEUTROPHILS % 66.9 % (40.0-76.0); PLATELET 272 x1000/uL (130-400); RED BLOOD CELL COUNT 4.64 mill/uL (4.2-5.4); RED CELL DISTRIBUTION WIDTH 15.5 % (11.6-14.6)
[2019-01-27 06:55] LABS: CHLORIDE 104 mEq/L (98-107)
[2019-01-27 07:01] LABS: PHOSPHORUS 3.7 mg/dL (2.5-4.9)
[2019-01-27] MEDS: BLOOD SUGAR DIAGNOSTIC STRIP TEST SCH ×4 (07:15→21:00)
[2019-01-27] MEDS: INSULIN LISPRO 100 UNITS/ML SUBCUT SCH ×4 (07:15→21:15)
[2019-01-27] MEDS: FLUTICASONE PROPIONATE 50MCG/SPRAY BOTTLE BOTHNSTRLS SCH ×2 (08:34→20:04)
[2019-01-27] MEDS: ENOXAPARIN 40MG/0.4ML SYR SUBCUT SCH (08:35)
[2019-01-27] MEDS: ASPIRIN 81MG EC TABLET PO SCH (08:35)
[2019-01-27] MEDS ORDERED: MAGNESIUM 2 G PREMIX 50 ML IV SCH (09:00)
[2019-01-27] MEDS: INSULIN GLARGINE UD 100 UNITS/ML SYR SUBCUT SCH ×2 (09:18→21:16)
[2019-01-27] MEDS: HYDROCODONE/ACETAMINOPHEN 5/325MG TABLET PO PRN ×3 (09:18→20:04)
[2019-01-27] MEDS ORDERED: REGADENOSON 0.4 MG/5 ML IV SCH (11:15)
[2019-01-27] MEDS: LORAZEPAM 2MG/ML CPJ IV PRN (22:09)
[2019-01-28] VITALS (11 sets, daily range): BP systolic 93–162; BP diastolic 65–109
[2019-01-28] MEDS: HYDROCODONE/ACETAMINOPHEN 5/325MG TABLET PO PRN ×3 (05:00→16:24)
[2019-01-28] MEDS: SODIUM CHLORIDE 0.9% 1,000 ML IV SCH ×2 (06:00→06:01)
[2019-01-28] MEDS: BLOOD SUGAR DIAGNOSTIC STRIP TEST SCH ×3 (06:02→17:45)
[2019-01-28] MEDS: INSULIN LISPRO 100 UNITS/ML SUBCUT SCH ×3 (07:20→17:45)
[2019-01-28 07:23] LABS: BASOPHILS % 0.3 % (0.0-2.0); EOSINOPHILS % 1.6 % (0.0-5.0); HEMATOCRIT. 36.1 % (36.0-48.0); LYMPHOCYTES % 26.1 % (20.0-50.0); MEAN CORPUSCULAR HEMOGLOBIN 26.2 pg (28.0-32.0); MEAN CORPUSCULAR VOLUME 78.7 fL (81.0-99.0); MEAN PLATELET VOLUME 8.5 fl (7.4-10.4); MONOCYTES % 7.9 % (2.0-8.0); NEUTROPHILS % 64.1 % (40.0-76.0); PLATELET 268 x1000/uL (130-400); RED BLOOD CELL COUNT 4.59 mill/uL (4.2-5.4); RED CELL DISTRIBUTION WIDTH 15.6 % (11.6-14.6)
[2019-01-28 07:28] LABS: CHLORIDE 108 mEq/L (98-107)
[2019-01-28 07:33] LABS: PHOSPHORUS 3.1 mg/dL (2.5-4.9)
[2019-01-28] MEDS ORDERED: POTASSIUM CHLORIDE 20MEQ TABLET SR PO SCH ×2 (07:45→10:30)
[2019-01-28] MEDS ORDERED: ENOXAPARIN 30MG/0.3ML SYR SUBCUT SCH (09:00)
[2019-01-28] MEDS ORDERED: PANTOPRAZOLE 40MG DR TABLET PO SCH (10:45)
[2019-01-28] MEDS: METOCLOPRAMIDE HCL 10MG TABLET PO SCH ×2 (11:02→16:55)
[2019-01-28] MEDS: ASPIRIN 81MG EC TABLET PO SCH (11:02)
[2019-01-28] MEDS: FLUTICASONE PROPIONATE 50MCG/SPRAY BOTTLE BOTHNSTRLS SCH (12:09)
[2019-01-28] MEDS: LEVOFLOXACIN 500MG PREMIX 100 ML IV SCH (12:10)
[2019-01-28] MEDS: INSULIN GLARGINE UD 100 UNITS/ML SYR SUBCUT SCH (12:16)
[2019-01-29] MEDS ORDERED: LEVOFLOXACIN 500MG TABLET PO SCH (11:00)
== END 2019-01-28 20:20 | disposition home or self-care (01) | DRG 420 ==
LOC: ER 20:28 → 3WST 01-25 03:42 → EDBEDREQSVC 01-25 03:45 → EDBEDREQ 01-25 03:45 → EDBEDREQTM 01-25 03:45 → ENRESERV 01-25 07:27 → CANRESERV 01-25 07:27 → EDBEDREQSVC 01-25 08:59 → ENRESERV 01-25 11:32
PROVIDERS: ADMIT Internal Medicine; ATTEND Internal Medicine
DX: E11.10 Type 2 diabetes mellitus with ketoacidosis without coma (principal); N17.9 Acute kidney failure, unspecified; R65.10 Systemic inflammatory response syndrome (SIRS) of non-infectious origin without acute organ dysfunction; I11.0 Hypertensive heart disease with heart failure; I50.32 Chronic diastolic (congestive) heart failure; K31.84 Gastroparesis; K76.0 Fatty (change of) liver, not elsewhere classified; E86.0 Dehydration; E87.1 Hypo-osmolality and hyponatremia; E66.9 Obesity, unspecified; E11.43 Type 2 diabetes mellitus with diabetic autonomic (poly)neuropathy; E87.6 Hypokalemia; I25.10 Atherosclerotic heart disease of native coronary artery without angina pectoris; I16.0 Hypertensive urgency; G40.909 Epilepsy, unspecified, not intractable, without status epilepticus; K44.9 Diaphragmatic hernia without obstruction or gangrene; F32.9 Major depressive disorder, single episode, unspecified; F41.9 Anxiety disorder, unspecified; Z91.19 Patient's noncompliance with other medical treatment and regimen; Z90.710 Acquired absence of both cervix and uterus; Z90.49 Acquired absence of other specified parts of digestive tract; Z98.891 History of uterine scar from previous surgery; Z87.11 Personal history of peptic ulcer disease; Z68.39 Body mass index [BMI] 39.0-39.9, adult; Z79.899 Other long term (current) drug therapy; I25.2 Old myocardial infarction
CPT/HCPCS: 36415; 36600; 74177; 76770; 80048; 80061; 81003; 82010; 82375; 82550; 82805; 82962; 83735; 84100; 84439; 84443; 84484; 93306; 99291; J0360; J1200; J1650; J1815; J1956; J2060; J2270; J2405; J2765; J3475; J3490; J7030; J7050; J8597; Q9967

== ENCOUNTER 2019-09-23 00:55 | Emergency (ER) | payer MEDICAID ==
[~2019-09-23] VITALS: Ht 167.6 cm; Wt 97.0 kg
[2019-09-23] MEDS ORDERED: LORAZEPAM 2MG/ML CPJ IV ONE (02:15)
[2019-09-23 02:32] LABS: CHLORIDE 102 mEq/L (98-107)
[2019-09-23 02:33] LABS: BASOPHILS % 0.6 % (0.0-2.0); EOSINOPHILS % 1.5 % (0.0-5.0); HEMATOCRIT. 40.2 % (36.0-48.0); HEMOGLOBIN. 13.5 g/dL (12.0-16.0); LYMPHOCYTES % 17.4 % (20.0-50.0); MEAN CORPUSCULAR HEMOGLOBIN 26.9 pg (28.0-32.0); MEAN PLATELET VOLUME 9.1 fl (7.4-10.4); MONOCYTES % 5.4 % (2.0-8.0); NEUTROPHILS % 75.1 % (40.0-76.0); PLATELET 236 x1000/uL (130-400); RED BLOOD CELL COUNT 5.02 mill/uL (4.2-5.4); RED CELL DISTRIBUTION WIDTH 15.8 % (11.6-14.6)
[2019-09-23 02:37] LABS: HCG SCREEN NEGATIVE
[2019-09-23] MEDS ORDERED: SODIUM CHLORIDE 0.9% 1,000 ML IV NR (02:52)
[2019-09-23] MEDS ORDERED: INSULIN REGULAR (HUMULIN R) 300UNITS/3ML SUBCUT NR (03:00)
[2019-09-23 04:57] VITALS: BP 126/93
== END 2019-09-23 05:16 | disposition home or self-care (01) ==
LOC: ER 01:04
DX: R00.2 Palpitations (principal); R42 Dizziness and giddiness; E11.65 Type 2 diabetes mellitus with hyperglycemia; F12.10 Cannabis abuse, uncomplicated; I10 Essential (primary) hypertension; Z79.899 Other long term (current) drug therapy
CPT/HCPCS: 36415; 71045; 80053; 82962; 83880; 84484; 84703; 85025; 93005; 96361; 96372; 96374; 99285; J1815; J2060

== ENCOUNTER 2020-06-14 10:20 | Emergency (ER) | payer MEDICAID ==
[~2020-06-14] VITALS: Ht 160 cm; Wt 90.0 kg
[~2020-06-14 10:20] MED LIST changes: +GABA-532 MT; +INSU100I24 SQ; -LISI-604 PO; +LISI20TA31 PO; +MIRT-91 MT; +OMEP10CA5 MT; +PARO37.510 MT
[2020-06-14] MEDS ORDERED: MAGNESIUM/ALUMINUM HYDROXIDE/SIMETHICONE 30ML UDC PO STA (10:40)
[2020-06-14] MEDS ORDERED: VISCOUS LIDOCAINE 2% 15 ML UDC PO STA (10:40)
[2020-06-14] MEDS ORDERED: MORPHINE SULFATE 4 MG/ML CPJ (NOT FOR IM USE) IV STA (10:40)
[2020-06-14] MEDS ORDERED: ONDANSETRON HCL 4MG/2ML INJ IV STA (10:40)
[2020-06-14] MEDS ORDERED: DICYCLOMINE 10 MG/5 ML ORAL SYR PO STA (10:40)
[2020-06-14 11:48] LABS: HEMATOCRIT. 41.5 % (36.0-48.0); HEMOGLOBIN. 13.7 g/dL (12.0-16.0); MEAN CORPUSCULAR HEMOGLOBIN 25.9 pg (28.0-32.0); MEAN CORPUSCULAR VOLUME 78.3 fL (81.0-99.0); MEAN PLATELET VOLUME 8.6 fl (7.4-10.4); PLATELET 304 x1000/uL (130-400); RED BLOOD CELL COUNT 5.29 mill/uL (4.2-5.4); RED CELL DISTRIBUTION WIDTH 16.4 % (11.6-14.6)
[2020-06-14 11:56] LABS: CHLORIDE 93 mEq/L (98-107)
[2020-06-14 11:58] LABS: PROTHROMBIN TIME 11.2 sec (9.6-11.0)
[2020-06-14] MEDS ORDERED: MORPHINE SULFATE 4 MG/ML CPJ (NOT FOR IM USE) IV ONE (12:15)
[2020-06-14 12:28] LABS: PLATELET ESTIMATE NORMAL
[2020-06-14] MEDS ORDERED: SODIUM CHLORIDE 0.9% 1,000 ML IV ONE (12:30)
[2020-06-14 13:02] VITALS: BP 151/98
[2020-06-14] MEDS ORDERED: ONDA4TAB5 PO (13:02)
[2020-06-14] MEDS ORDERED: TOPUD PO (13:02)
[2020-06-16 02:50] LABS: BASOPHILS % 0.6 % (0.0-2.0); EOSINOPHILS % 0.5 % (0.0-5.0); HEMATOCRIT. 39.1 % (36.0-48.0); HEMOGLOBIN. 12.8 g/dL (12.0-16.0); MEAN CORPUSCULAR HEMOGLOBIN 26.2 pg (28.0-32.0); MEAN CORPUSCULAR VOLUME 79.6 fL (81.0-99.0); MEAN PLATELET VOLUME 8.3 fl (7.4-10.4); NEUTROPHILS % 73.9 % (40.0-76.0); PLATELET 262 x1000/uL (130-400); RED BLOOD CELL COUNT 4.91 mill/uL (4.2-5.4); RED CELL DISTRIBUTION WIDTH 16.5 % (11.6-14.6)
[2020-06-16 02:57] LABS: CHLORIDE 102 mEq/L (98-107)
[2020-06-16 03:02] LABS: ETHANOL BLOOD < 10 mg/dL
== END 2020-06-14 13:53 | disposition home or self-care (01) ==
LOC: ER 10:28 → CANBEDREQ 16:00
DX: E11.65 Type 2 diabetes mellitus with hyperglycemia (principal); I10 Essential (primary) hypertension; R19.7 Diarrhea, unspecified; Z79.4 Long term (current) use of insulin; Z87.19 Personal history of other diseases of the digestive system; Z79.899 Other long term (current) drug therapy; Z98.51 Tubal ligation status
CPT/HCPCS: 36415; 80053; 82962; 83690; 85025; 85610; 96361; 96374; 96375; 96376; 99284; J2270; J2405; J7030

== ENCOUNTER 2020-06-16 01:09 | Emergency (ER) | payer MEDICAID ==
[~2020-06-16] VITALS: Ht 167.6 cm; Wt 104.0 kg
[~2020-06-16 01:09] MED LIST changes: +ONDA4TAB5 PO; +TOPUD PO
[2020-06-16] MEDS ORDERED: FAMOTIDINE 20MG TABLET PO ONE (01:45)
[2020-06-16] MEDS ORDERED: MAGNESIUM/ALUMINUM HYDROXIDE/SIMETHICONE 30ML UDC PO ONE (01:45)
[2020-06-16] MEDS ORDERED: VISCOUS LIDOCAINE 2% 15 ML UDC PO ONE (01:45)
[2020-06-16] MEDS ORDERED: DICYCLOMINE HCL 10MG/ML 2ML AMP IM ONE (03:15)
[2020-06-16] MEDS ORDERED: HALOPERIDOL LACTATE 5MG/ML VIAL IM ONE (03:15)
[2020-06-16 04:06] LABS: BASOPHILS % 0.5 % (0.0-2.0); EOSINOPHILS % 0.7 % (0.0-5.0); HEMOGLOBIN. 13.3 g/dL (12.0-16.0); LYMPHOCYTES % 25.2 % (20.0-50.0); MEAN CORPUSCULAR HEMOGLOBIN 25.8 pg (28.0-32.0); MEAN CORPUSCULAR VOLUME 77.6 fL (81.0-99.0); MONOCYTES % 4.8 % (2.0-8.0); NEUTROPHILS % 68.8 % (40.0-76.0); PLATELET 276 x1000/uL (130-400); RED BLOOD CELL COUNT 5.15 mill/uL (4.2-5.4); RED CELL DISTRIBUTION WIDTH 16.4 % (11.6-14.6)
[2020-06-16 04:24] LABS: CHLORIDE 103 mEq/L (98-107)
[2020-06-16 04:28] LABS: ETHANOL BLOOD < 10 mg/dL
[2020-06-16 05:28] VITALS: BP 104/67
== END 2020-06-16 05:34 | disposition home or self-care (01) ==
LOC: ER 01:09
DX: K25.9 Gastric ulcer, unspecified as acute or chronic, without hemorrhage or perforation (principal); I10 Essential (primary) hypertension; F12.90 Cannabis use, unspecified, uncomplicated; E11.9 Type 2 diabetes mellitus without complications; I25.2 Old myocardial infarction; Z79.899 Other long term (current) drug therapy; Z79.4 Long term (current) use of insulin
CPT/HCPCS: 36415; 80053; 80320; 82962; 83690; 85025; 93005; 96372; 99284; J0500; J1630; G0480

== ENCOUNTER 2020-09-05 00:16 | Emergency (ER) | payer MEDICAID ==
[~2020-09-05] VITALS: Ht 167.6 cm; Wt 91.0 kg
[2020-09-05] MEDS ORDERED: METOCLOPRAMIDE HCL 10MG/2ML VIAL IV STA (01:23)
[2020-09-05] MEDS ORDERED: MORPHINE SULFATE 4 MG/ML CPJ (NOT FOR IM USE) IV STA (01:23)
[2020-09-05] MEDS ORDERED: FAMOTIDINE 20MG/2ML VIAL IV STA (01:23)
[2020-09-05] MEDS ORDERED: SODIUM CHLORIDE 0.9% 1,000 ML IV ONE (01:30)
[2020-09-05 02:19] LABS: BASOPHILS % 0.4 % (0.0-2.0); EOSINOPHILS % 1.1 % (0.0-5.0); HEMATOCRIT. 38.1 % (36.0-48.0); HEMOGLOBIN. 12.8 g/dL (12.0-16.0); LYMPHOCYTES % 18.5 % (20.0-50.0); MEAN CORPUSCULAR HEMOGLOBIN 27.1 pg (28.0-32.0); MEAN CORPUSCULAR VOLUME 80.9 fL (81.0-99.0); MEAN PLATELET VOLUME 8.7 fl (7.4-10.4); MONOCYTES % 5.1 % (2.0-8.0); NEUTROPHILS % 74.9 % (40.0-76.0); PLATELET 261 x1000/uL (130-400); RED BLOOD CELL COUNT 4.71 mill/uL (4.2-5.4)
[2020-09-05 02:25] LABS: CHLORIDE 102 mEq/L (98-107); CLARITY URINE CLEAR (CLEAR); COLOR URINE YELLOW (YELLOW); KETONES URINE 1+ (NEGATIVE); LEUKOCYTE ESTERASE URINE NEGATIVE (NEGATIVE); NITRITE URINE NEGATIVE (NEGATIVE); OCCULT BLOOD URINE NEGATIVE (NEGATIVE); PROTEIN URINE 2+ (NEGATIVE); SPECIFIC GRAVITY URINE 1.048 (1.005-1.030)
[2020-09-05 02:26] LABS: HCG SCREEN NEGATIVE
[2020-09-05] MEDS ORDERED: ACETAMINOPHEN 325MG TABLET PO ONE (03:15)
[2020-09-05 04:18] VITALS: BP 132/78
== END 2020-09-05 04:19 | disposition home or self-care (01) ==
LOC: ER 00:20
DX: R10.13 Epigastric pain (principal); E11.43 Type 2 diabetes mellitus with diabetic autonomic (poly)neuropathy; K31.84 Gastroparesis; I25.2 Old myocardial infarction; I10 Essential (primary) hypertension; R94.31 Abnormal electrocardiogram [ECG] [EKG]; Z87.11 Personal history of peptic ulcer disease; Z79.4 Long term (current) use of insulin
CPT/HCPCS: 36415; 80053; 81003; 81025; 82962; 83605; 83690; 84703; 85025; 93005; 96361; 96374; 96375; 99284; J2270; J2765; J3490; J7030; Z7610

== ENCOUNTER 2021-01-23 02:02 | Emergency (ER) | payer MEDICAID, OTHER ==
[~2021-01-23] VITALS: Ht 165.1 cm; Wt 82.0 kg
[~2021-01-23 02:02] MED LIST changes: -LISI20TA31 PO; +LISI40TA13 MT; +LORA-249 MT; +MIRT-90 MT; -MIRT-91 MT
[2021-01-23] MEDS ORDERED: METOCLOPRAMIDE HCL 10MG/2ML VIAL IV STA (02:38)
[2021-01-23] MEDS ORDERED: FAMOTIDINE 20MG/2ML VIAL IV STA (02:38)
[2021-01-23] MEDS ORDERED: KETOROLAC 30MG/ML VIAL IV STA (02:38)
[2021-01-23 03:18] LABS: BASOPHILS % 0.4 % (0.0-2.0); EOSINOPHILS % 1.6 % (0.0-5.0); HEMATOCRIT. 43.1 % (36.0-48.0); HEMOGLOBIN. 14.3 g/dL (12.0-16.0); LYMPHOCYTES % 23.5 % (20.0-50.0); MEAN CORPUSCULAR HEMOGLOBIN 25.5 pg (28.0-32.0); MEAN CORPUSCULAR VOLUME 76.8 fL (81.0-99.0); MEAN PLATELET VOLUME 8.9 fl (7.4-10.4); MONOCYTES % 6.6 % (2.0-8.0); NEUTROPHILS % 67.9 % (40.0-76.0); PLATELET 272 x1000/uL (130-400); RED BLOOD CELL COUNT 5.61 mill/uL (4.2-5.4); RED CELL DISTRIBUTION WIDTH 16.1 % (11.6-14.6)
[2021-01-23 03:34] LABS: CHLORIDE 104 mEq/L (98-107)
[2021-01-23 04:10] VITALS: BP 159/78
[2021-01-23 04:41] LABS: CLARITY URINE CLOUDY (CLEAR); COLOR URINE YELLOW (YELLOW); KETONES URINE TRACE (NEGATIVE); LEUKOCYTE ESTERASE URINE 1+ (NEGATIVE); NITRITE URINE NEGATIVE (NEGATIVE); OCCULT BLOOD URINE 1+ (NEGATIVE); PH URINE 5.5 (4.5-8.0); PROTEIN URINE 3+ (NEGATIVE); SPECIFIC GRAVITY URINE 1.044 (1.005-1.030)
[2021-01-23] MEDS ORDERED: METO-293 MT (05:23)
[2021-01-23] MEDS ORDERED: CEPH500C2 MT (05:23)
[2021-01-23] MEDS ORDERED: IBUP-2029 MT (05:23)
== END 2021-01-23 05:38 | disposition home or self-care (01) ==
LOC: ER 02:02
DX: R10.13 Epigastric pain (principal); R11.2 Nausea with vomiting, unspecified; R30.0 Dysuria; K44.9 Diaphragmatic hernia without obstruction or gangrene; I10 Essential (primary) hypertension; E11.43 Type 2 diabetes mellitus with diabetic autonomic (poly)neuropathy; K31.84 Gastroparesis; Z79.4 Long term (current) use of insulin; Z79.84 Long term (current) use of oral hypoglycemic drugs; I25.2 Old myocardial infarction
CPT/HCPCS: 36415; 74176; 80053; 81003; 81025; 83690; 85025; 87086; 96374; 96375; 99284; J1885; J2765; J3490; Z7610

== ENCOUNTER 2021-01-25 16:33 | Inpatient (IN) | payer OTHER ==
[~2021-01-25] VITALS: Ht 165.1 cm; Wt 113.1 kg
[~2021-01-25 16:33] MED LIST changes: +CEPH500C2 MT; +IBUP-2029 MT; +METO-293 MT
[2021-01-25] MEDS ORDERED: MORPHINE SULFATE 10 MG/ML CPJ IV ONE (17:45)
[2021-01-25] MEDS ORDERED: MORPHINE SULFATE 4 MG/ML CPJ (NOT FOR IM USE) IV PRN (17:45)
[2021-01-25] MEDS ORDERED: LACTATED RINGERS 1,000 ML IV SCH ×2 (18:00→19:00)
[2021-01-25] MEDS ORDERED: HALOPERIDOL LACTATE 5MG/ML VIAL IM ONE ×2 (18:00→19:15)
[2021-01-25 18:34] LABS: HEMATOCRIT. 42.7 % (36.0-48.0); MEAN CORPUSCULAR HEMOGLOBIN 25.5 pg (28.0-32.0); MEAN CORPUSCULAR VOLUME 77.9 fL (81.0-99.0); PLATELET 275 x1000/uL (130-400); RED BLOOD CELL COUNT 5.48 mill/uL (4.2-5.4); RED CELL DISTRIBUTION WIDTH 16.2 % (11.6-14.6)
[2021-01-25 18:41] LABS: CHLORIDE 104 mEq/L (98-107)
[2021-01-25 18:49] LABS: BETA HYDROXYBUTYRATE 2.5 mMol/L (0.0-0.3)
[2021-01-25 19:05] LABS: CLARITY URINE CLEAR (CLEAR); COLOR URINE YELLOW (YELLOW); KETONES URINE 3+ (NEGATIVE); LEUKOCYTE ESTERASE URINE NEGATIVE (NEGATIVE); NITRITE URINE NEGATIVE (NEGATIVE); OCCULT BLOOD URINE 1+ (NEGATIVE); PH URINE 5.5 (4.5-8.0); PROTEIN URINE 2+ (NEGATIVE); SPECIFIC GRAVITY URINE 1.027 (1.005-1.030); UROBILINOGEN URINE 0.2 E.U./dL (0.2-1.0)
[2021-01-25 19:46] LABS: PLATELET ESTIMATE NORMAL
[2021-01-25] MEDS ORDERED: AMLODIPINE 10MG TABLET PO NR (22:00)
[2021-01-25] MEDS ORDERED: CLONIDINE HCL 0.3MG/24HR PATCH TD ONE (22:00)
[2021-01-25] MEDS ORDERED: INSULIN GLARGINE UD 100 UNITS/ML SYR SUBCUT ONE (22:30)
[2021-01-25] MEDS ORDERED: HALOPERIDOL LACTATE 5MG/ML VIAL IM NR (22:30)
[2021-01-26] MEDS ORDERED: KETOROLAC 15MG/ML VIAL IV ONE (01:15)
[2021-01-26] MEDS ORDERED: LORAZEPAM 2MG/ML CPJ IV ONE (01:15)
[2021-01-26] MEDS ORDERED: HYDRALAZINE 20MG/ML VIAL IV ONE (01:15)
[2021-01-26] MEDS ORDERED: NALOXONE HCL 0.4MG/ML VIAL IV PRN (05:45)
[2021-01-26 09:00] VITALS: BP 135/62
[2021-01-26] MEDS ORDERED: DEXTROSE 50% WATER 50ML SYRINGE IV PRN (09:00)
[2021-01-26] MEDS: ONDANSETRON HCL 4MG/2ML INJ IV PRN ×2 (09:21→21:08)
[2021-01-26] MEDS: METOPROLOL TARTRATE 50MG TABLET PO SCH ×2 (09:22→21:10)
[2021-01-26] MEDS: OMEPRAZOLE 20MG CAPSULE EXTENDED RELEASE PO SCH (09:22)
[2021-01-26] MEDS: HYDROCODONE/ACETAMINOPHEN 5/325MG TABLET PO PRN ×3 (09:26→21:11)
[2021-01-26] MEDS: BLOOD SUGAR DIAGNOSTIC STRIP TEST SCH ×3 (11:40→21:09)
[2021-01-26 12:00] VITALS: BP 132/60
[2021-01-26] MEDS: DILTIAZEM HCL 60MG TABLET PO SCH ×2 (12:16→17:07)
[2021-01-26] MEDS: METOCLOPRAMIDE HCL 10MG/2ML VIAL IV SCH ×2 (12:16→17:07)
[2021-01-26] MEDS: INSULIN LISPRO 100 UNITS/ML SUBCUT SCH ×5 (12:17→21:12)
[2021-01-26] MEDS: INSULIN GLARGINE UD 100 UNITS/ML SYR SUBCUT SCH ×2 (14:31→21:42)
[2021-01-26 16:00] VITALS: BP 131/63
[2021-01-26 20:00] VITALS: BP 110/56
[2021-01-27] VITALS (7 sets, daily range): BP systolic 101–180; BP diastolic 52–91
[2021-01-27] MEDS: METOCLOPRAMIDE HCL 10MG/2ML VIAL IV SCH ×5 (00:48→23:56)
[2021-01-27] MEDS: DILTIAZEM HCL 60MG TABLET PO SCH ×5 (00:49→23:56)
[2021-01-27] MEDS: HYDROCODONE/ACETAMINOPHEN 5/325MG TABLET PO PRN ×6 (01:33→23:55)
[2021-01-27] MEDS: ONDANSETRON HCL 4MG/2ML INJ IV PRN ×2 (01:45→22:07)
[2021-01-27] MEDS: OMEPRAZOLE 20MG CAPSULE EXTENDED RELEASE PO SCH (06:25)
[2021-01-27] MEDS: BLOOD SUGAR DIAGNOSTIC STRIP TEST SCH ×4 (06:26→21:00)
[2021-01-27] MEDS: INSULIN LISPRO 100 UNITS/ML SUBCUT SCH ×7 (06:29→22:09)
[2021-01-27] MEDS: METOPROLOL TARTRATE 50MG TABLET PO SCH ×2 (08:20→22:07)
[2021-01-27] MEDS: INSULIN GLARGINE UD 100 UNITS/ML SYR SUBCUT SCH ×2 (10:16→22:09)
[2021-01-27] MEDS ORDERED: MORPHINE SULFATE 2 MG/ML CPJ (NOT FOR IM USE) IV NR (21:45)
[2021-01-28] VITALS: BP 188/100
[2021-01-28] MEDS ORDERED: CLONIDINE 0.1MG TABLET PO PRN
[2021-01-28] MEDS: HYDROCODONE/ACETAMINOPHEN 5/325MG TABLET PO PRN ×3 (03:55→12:35)
[2021-01-28] MEDS: ONDANSETRON HCL 4MG/2ML INJ IV PRN ×2 (03:59→23:39)
[2021-01-28 04:00] VITALS: BP 126/89
[2021-01-28] MEDS: BLOOD SUGAR DIAGNOSTIC STRIP TEST SCH ×4 (06:31→20:31)
[2021-01-28] MEDS: OMEPRAZOLE 20MG CAPSULE EXTENDED RELEASE PO SCH (06:31)
[2021-01-28] MEDS: DILTIAZEM HCL 60MG TABLET PO SCH ×4 (06:31→23:39)
[2021-01-28] MEDS: METOCLOPRAMIDE HCL 10MG/2ML VIAL IV SCH ×4 (06:31→23:39)
[2021-01-28] MEDS: INSULIN LISPRO 100 UNITS/ML SUBCUT SCH ×7 (06:32→20:31)
[2021-01-28 08:00] VITALS: BP 121/90
[2021-01-28] MEDS: METOPROLOL TARTRATE 50MG TABLET PO SCH ×2 (08:28→20:31)
[2021-01-28] MEDS: INSULIN GLARGINE UD 100 UNITS/ML SYR SUBCUT SCH ×2 (10:34→22:11)
[2021-01-28 12:00] VITALS: BP 134/79
[2021-01-28 16:00] VITALS: BP 133/85
[2021-01-28 16:05] LABS: BASOPHILS % 0.8 % (0.0-2.0); EOSINOPHILS % 0.5 % (0.0-5.0); HEMATOCRIT. 40.7 % (36.0-48.0); HEMOGLOBIN. 13.2 g/dL (12.0-16.0); LYMPHOCYTES % 20.7 % (20.0-50.0); MEAN CORPUSCULAR HEMOGLOBIN 25.7 pg (28.0-32.0); MEAN CORPUSCULAR VOLUME 78.8 fL (81.0-99.0); MEAN PLATELET VOLUME 9.3 fl (7.4-10.4); MONOCYTES % 7.6 % (2.0-8.0); NEUTROPHILS % 70.4 % (40.0-76.0); PLATELET 181 x1000/uL (130-400); RED BLOOD CELL COUNT 5.16 mill/uL (4.2-5.4); RED CELL DISTRIBUTION WIDTH 16.3 % (11.6-14.6)
[2021-01-28 16:38] LABS: CHLORIDE 102 mEq/L (98-107)
[2021-01-28] MEDS: SUCRALFATE 1 G/10 ML UDC PO SCH ×2 (17:10→20:30)
[2021-01-28] MEDS: PANTOPRAZOLE SODIUM 40 MG/VIAL IV SCH (17:10)
[2021-01-28] MEDS: HYDROCODONE/ACETAMINOPHEN 10/325MG TABLET PO PRN ×2 (17:16→22:19)
[2021-01-28 20:00] VITALS: BP 118/96
[2021-01-28] MEDS ORDERED: POTASSIUM CHLORIDE 20MEQ TABLET SR PO NR (20:30)
[2021-01-29] VITALS: BP 132/78
[2021-01-29] MEDS: HYDROCODONE/ACETAMINOPHEN 10/325MG TABLET PO PRN ×3 (02:50→12:29)
[2021-01-29 04:00] VITALS: BP 158/84
[2021-01-29] MEDS: SUCRALFATE 1 G/10 ML UDC PO SCH ×2 (05:56→11:10)
[2021-01-29] MEDS: DILTIAZEM HCL 60MG TABLET PO SCH ×2 (05:56→11:10)
[2021-01-29] MEDS: BLOOD SUGAR DIAGNOSTIC STRIP TEST SCH ×2 (05:56→11:53)
[2021-01-29] MEDS: METOCLOPRAMIDE HCL 10MG/2ML VIAL IV SCH ×2 (05:56→11:10)
[2021-01-29] MEDS: OMEPRAZOLE 20MG CAPSULE EXTENDED RELEASE PO SCH (05:56)
[2021-01-29] MEDS: INSULIN LISPRO 100 UNITS/ML SUBCUT SCH ×4 (06:10→12:32)
[2021-01-29 08:00] VITALS: BP 134/77
[2021-01-29] MEDS: ONDANSETRON HCL 4MG/2ML INJ IV PRN (08:19)
[2021-01-29] MEDS: PANTOPRAZOLE SODIUM 40 MG/VIAL IV SCH (08:19)
[2021-01-29] MEDS: METOPROLOL TARTRATE 50MG TABLET PO SCH (08:19)
[2021-01-29 09:21] LABS: BASOPHILS % 0.4 % (0.0-2.0); EOSINOPHILS % 0.8 % (0.0-5.0); HEMATOCRIT. 41.3 % (36.0-48.0); HEMOGLOBIN. 13.8 g/dL (12.0-16.0); MEAN CORPUSCULAR HEMOGLOBIN 26.1 pg (28.0-32.0); MEAN CORPUSCULAR VOLUME 77.9 fL (81.0-99.0); MEAN PLATELET VOLUME 8.5 fl (7.4-10.4); MONOCYTES % 8.2 % (2.0-8.0); NEUTROPHILS % 60.6 % (40.0-76.0); PLATELET 298 x1000/uL (130-400); RED CELL DISTRIBUTION WIDTH 16.3 % (11.6-14.6)
[2021-01-29 09:27] LABS: CHLORIDE 103 mEq/L (98-107)
[2021-01-29] MEDS ORDERED: DILT240C91 MT (11:14)
[2021-01-29] MEDS ORDERED: METO-539 MT (11:14)
[2021-01-29] MEDS: INSULIN GLARGINE UD 100 UNITS/ML SYR SUBCUT SCH (11:15)
[2021-01-29 12:00] VITALS: BP 129/82
[2021-01-29 13:30] VITALS: BP 121/86
== END 2021-01-29 13:50 | disposition home or self-care (01) | DRG 48 ==
LOC: ER 16:33 → MICUSO 01-26 01:05 → 7EST 01-26 07:36 → 7WST 01-26 08:49 → 7EST 01-26 08:51
PROVIDERS: ADMIT Internal Medicine; ATTEND Internal Medicine
DX: E11.43 Type 2 diabetes mellitus with diabetic autonomic (poly)neuropathy (principal); E87.2 Acidosis; E11.65 Type 2 diabetes mellitus with hyperglycemia; K31.84 Gastroparesis; E66.9 Obesity, unspecified; F32.A Depression, unspecified; I10 Essential (primary) hypertension; Z87.11 Personal history of peptic ulcer disease; Z90.49 Acquired absence of other specified parts of digestive tract; Z90.710 Acquired absence of both cervix and uterus; I25.2 Old myocardial infarction; Z79.899 Other long term (current) drug therapy; Z71.3 Dietary counseling and surveillance; Z68.41 Body mass index [BMI] 40.0-44.9, adult; I16.1 Hypertensive emergency; F12.11 Cannabis abuse, in remission; E86.0 Dehydration
CPT/HCPCS: 36415; 80048; 80076; 81003; 82010; 82962; 83605; 84484; 85025; 93005; 99291; C1893; C9113; J0360; J1630; J1815; J1885; J2060; J2270; J2405; J2765

== ENCOUNTER 2021-02-26 18:56 | Inpatient (IN) | payer OTHER ==
[~2021-02-26] VITALS: Ht 165.1 cm; Wt 113.4 kg
[~2021-02-26 18:56] MED LIST changes: -CEPH500C2 MT; +DILT240C91 MT; -FLUC200T51 MT; -IBUP-2029 MT; -LANTUSUD SUBCUT; +METO-539 MT
[2021-02-26 19:43] LABS: BASOPHILS % 0.2 % (0.0-2.0); EOSINOPHILS % 0.6 % (0.0-5.0); HEMATOCRIT. 39.3 % (36.0-48.0); HEMOGLOBIN. 13.1 g/dL (12.0-16.0); LYMPHOCYTES % 10.1 % (20.0-50.0); MEAN CORPUSCULAR HEMOGLOBIN 25.8 pg (28.0-32.0); MEAN CORPUSCULAR VOLUME 77.4 fL (81.0-99.0); MEAN PLATELET VOLUME 8.3 fl (7.4-10.4); MONOCYTES % 7.2 % (2.0-8.0); NEUTROPHILS % 81.9 % (40.0-76.0); PLATELET 313 x1000/uL (130-400); RED BLOOD CELL COUNT 5.08 mill/uL (4.2-5.4); RED CELL DISTRIBUTION WIDTH 16.6 % (11.6-14.6)
[2021-02-26] MEDS ORDERED: ASPIRIN 325MG EC TABLET PO ONE (19:45)
[2021-02-26 19:50] LABS: CHLORIDE 106 mEq/L (98-107)
[2021-02-26 19:53] LABS: PROTHROMBIN TIME 10.5 sec (9.6-11.0)
[2021-02-26 19:54] LABS: ETHANOL BLOOD < 10 mg/dL
[2021-02-26] MEDS ORDERED: MORPHINE SULFATE 4 MG/ML CPJ (NOT FOR IM USE) IV ONE (20:30)
[2021-02-26] MEDS ORDERED: KETOROLAC 30MG/ML VIAL IV ONE (21:15)
[2021-02-26] MEDS ORDERED: LORAZEPAM 2MG/ML CPJ IV ONE (21:15)
[2021-02-27 03:49] LABS: CLARITY URINE CLOUDY (CLEAR); COLOR URINE YELLOW (YELLOW); KETONES URINE TRACE (NEGATIVE); LEUKOCYTE ESTERASE URINE 1+ (NEGATIVE); NITRITE URINE NEGATIVE (NEGATIVE); OCCULT BLOOD URINE TRACE (NEGATIVE); PROTEIN URINE 2+ (NEGATIVE); SPECIFIC GRAVITY URINE 1.039 (1.005-1.030); UROBILINOGEN URINE 0.2 E.U./dL (0.2-1.0)
[2021-02-27 04:10] LABS: *AMPHETAMINES SCREEN URINE NEGATIVE (NEGATIVE); *BARBITURATES SCREEN URINE NEGATIVE (NEGATIVE); *BENZODIAZEPINES SCREEN URINE NEGATIVE (NEGATIVE); *COCAINE SCREEN URINE NEGATIVE (NEGATIVE); METHADONE URINE SCREEN NEGATIVE (NEGATIVE)
[2021-02-27 04:11] LABS: PHENCYCLIDINE URINE SCREEN NEGATIVE (NEGATIVE)
[2021-02-27 04:16] LABS: CANNABINOID URINE SCREEN PRESUMTIVE POSITIVE (NEGATIVE); OPIATES URINE SCREEN PRESUMTIVE POSITIVE (NEGATIVE)
[2021-02-27] MEDS ORDERED: NALOXONE HCL 0.4MG/ML VIAL IV PRN (04:30)
[2021-02-27] MEDS: HYDROCODONE/ACETAMINOPHEN 10/325MG TABLET PO PRN ×3 (04:51→19:59)
[2021-02-27 08:00] VITALS: BP 152/82
[2021-02-27] MEDS ORDERED: DEXTROSE 50% WATER 50ML SYRINGE IV PRN (08:45)
[2021-02-27] MEDS: ASPIRIN 81MG TABLET PO SCH (09:36)
[2021-02-27] MEDS: ENOXAPARIN 30MG/0.3ML SYR SUBCUT SCH ×2 (09:38→21:24)
[2021-02-27 09:40] VITALS: BP 152/52
[2021-02-27] MEDS: BLOOD SUGAR DIAGNOSTIC STRIP TEST SCH ×3 (11:56→20:25)
[2021-02-27 12:00] VITALS: BP 154/73
[2021-02-27] MEDS ORDERED: LORAZEPAM 2MG/ML CPJ IV NR (12:00)
[2021-02-27] MEDS: INSULIN LISPRO 100 UNITS/ML SUBCUT SCH ×3 (12:07→21:25)
[2021-02-27] MEDS: ONDANSETRON HCL 4MG/2ML INJ IV PRN ×2 (12:21→23:33)
[2021-02-27 16:00] VITALS: BP 152/65
[2021-02-27] MEDS ORDERED: IOHEXOL-350 100 ML BOTTLE ONE (17:01)
[2021-02-27] MEDS: LORAZEPAM 1MG TABLET PO PRN (17:25)
[2021-02-27 20:00] VITALS: BP 160/88
[2021-02-27] MEDS ORDERED: CEFTRIAXONE 1 G PREMIX 50 ML IV SCH (21:30)
[2021-02-27] MEDS: AMLODIPINE 10MG TABLET PO SCH (22:12)
[2021-02-27] MEDS: CEFTRIAXONE 1,000 MG in DEXTROSE 5% WATER 50 ML IV SCH (23:07)
[2021-02-27] MEDS: INSULIN GLARGINE UD 100 UNITS/ML SYR SUBCUT SCH (23:09)
[2021-02-28] VITALS: BP 122/70
[2021-02-28] MEDS: HYDROCODONE/ACETAMINOPHEN 10/325MG TABLET PO PRN ×5 (00:13→21:26)
[2021-02-28 04:00] VITALS: BP 176/96
[2021-02-28] MEDS: ONDANSETRON HCL 4MG/2ML INJ IV PRN ×2 (05:11→11:00)
[2021-02-28] MEDS: BLOOD SUGAR DIAGNOSTIC STRIP TEST SCH ×4 (06:40→20:38)
[2021-02-28] MEDS: INSULIN LISPRO 100 UNITS/ML SUBCUT SCH ×4 (07:46→20:39)
[2021-02-28 08:00] VITALS: BP 144/84
[2021-02-28] MEDS: OMEPRAZOLE 20MG CAPSULE EXTENDED RELEASE PO SCH (09:12)
[2021-02-28] MEDS: AMLODIPINE 10MG TABLET PO SCH (09:12)
[2021-02-28] MEDS: ASPIRIN 81MG TABLET PO SCH (09:12)
[2021-02-28] MEDS: ENOXAPARIN 30MG/0.3ML SYR SUBCUT SCH ×2 (09:13→20:38)
[2021-02-28] MEDS: ACETAMINOPHEN 325MG TABLET PO PRN ×2 (11:01→20:40)
[2021-02-28] MEDS: INSULIN GLARGINE UD 100 UNITS/ML SYR SUBCUT SCH ×2 (11:02→21:27)
[2021-02-28 12:00] VITALS: BP 167/81
[2021-02-28] MEDS: GABAPENTIN 300MG CAPSULE PO SCH ×2 (14:47→21:26)
[2021-02-28 16:00] VITALS: BP 139/78
[2021-02-28] MEDS: METOCLOPRAMIDE HCL 10MG/2ML VIAL IV SCH (17:24)
[2021-02-28] MEDS ORDERED: LACTULOSE 20G/30ML UDC PO PRN (17:30)
[2021-02-28 20:00] VITALS: BP 158/78
[2021-03-01] VITALS: BP 145/80
[2021-03-01] MEDS: CEFTRIAXONE 1,000 MG in DEXTROSE 5% WATER 50 ML IV SCH (01:22)
[2021-03-01] MEDS: METOCLOPRAMIDE HCL 10MG/2ML VIAL IV SCH ×3 (01:23→12:06)
[2021-03-01] MEDS: LORAZEPAM 1MG TABLET PO PRN (01:37)
[2021-03-01 04:00] VITALS: BP 147/69
[2021-03-01] MEDS: GABAPENTIN 300MG CAPSULE PO SCH (05:26)
[2021-03-01] MEDS: BLOOD SUGAR DIAGNOSTIC STRIP TEST SCH ×2 (06:19→12:07)
[2021-03-01] MEDS: INSULIN LISPRO 100 UNITS/ML SUBCUT SCH ×2 (06:19→12:07)
[2021-03-01] MEDS: OMEPRAZOLE 20MG CAPSULE EXTENDED RELEASE PO SCH (06:20)
[2021-03-01 08:00] VITALS: BP 132/70
[2021-03-01] MEDS: HYDROCODONE/ACETAMINOPHEN 10/325MG TABLET PO PRN (08:17)
[2021-03-01] MEDS: ENOXAPARIN 30MG/0.3ML SYR SUBCUT SCH (08:17)
[2021-03-01] MEDS: AMLODIPINE 10MG TABLET PO SCH (08:17)
[2021-03-01] MEDS: ASPIRIN 81MG TABLET PO SCH (08:17)
[2021-03-01] MEDS ORDERED: DOCUSATE SODIUM 250MG CAPSULE PO SCH (09:00)
[2021-03-01] MEDS: INSULIN GLARGINE UD 100 UNITS/ML SYR SUBCUT SCH (10:28)
[2021-03-01 12:00] VITALS: BP 158/84
[2021-03-01 12:27] VITALS: BP 158/84
== END 2021-03-01 13:18 | disposition home or self-care (01) | DRG 47 ==
LOC: ER 18:56 → 5WST 20:14 → EDBEDREQTM 20:17 → EDBEDREQ 20:17 → EDBEDREQSVC 20:17 → MICUSO 22:24 → 7EST 02-27 09:10
PROVIDERS: ADMIT Internal Medicine; ATTEND Internal Medicine
DX: G45.9 Transient cerebral ischemic attack, unspecified (principal); R47.01 Aphasia; E11.9 Type 2 diabetes mellitus without complications; F17.200 Nicotine dependence, unspecified, uncomplicated; I10 Essential (primary) hypertension; K59.00 Constipation, unspecified; E66.9 Obesity, unspecified; M54.50 Low back pain, unspecified; F32.A Depression, unspecified; R47.1 Dysarthria and anarthria; R53.1 Weakness; R47.81 Slurred speech; M79.604 Pain in right leg; F41.9 Anxiety disorder, unspecified; R29.701 NIHSS score 1; N39.0 Urinary tract infection, site not specified; Z82.49 Family history of ischemic heart disease and other diseases of the circulatory system; I25.2 Old myocardial infarction; Z71.3 Dietary counseling and surveillance; Z68.41 Body mass index [BMI] 40.0-44.9, adult; Z79.899 Other long term (current) drug therapy
CPT/HCPCS: 36415; 70496; 70498; 70551; 71045; 72131; 80053; 80061; 80305; 80320; 81003; 82962; 84484; 85025; 87077; 87186; 93005; 99285; J0696; J1650; J1815; J1885; J2060; J2270; J2405; J2765; J7040; J7060; Q9967; G0480

== ENCOUNTER 2021-09-17 19:10 | Emergency (ER) | payer MEDICAID, OTHER ==
[~2021-09-17] VITALS: Ht 162.6 cm; Wt 73.0 kg
[2021-09-17 19:17] VITALS: BP 152/100
[2021-09-17] MEDS ORDERED: FAMOTIDINE 20MG/2ML VIAL IV ONE (19:30)
[2021-09-17] MEDS ORDERED: VISCOUS LIDOCAINE 2% 15 ML UDC MM STA (19:30)
[2021-09-17] MEDS ORDERED: ONDANSETRON HCL 4MG/2ML INJ IV ONE (19:30)
[2021-09-17] MEDS ORDERED: MAGNESIUM/ALUMINUM HYDROXIDE/SIMETHICONE 30ML UDC PO ONE (19:30)
[2021-09-17] MEDS ORDERED: MORPHINE SULFATE 4 MG/ML CPJ (NOT FOR IM USE) IV ONE (19:30)
== END 2021-09-17 22:57 | disposition left against medical advice (07) ==
LOC: ER 19:10
DX: R10.13 Epigastric pain (principal); I25.2 Old myocardial infarction; I10 Essential (primary) hypertension; E11.9 Type 2 diabetes mellitus without complications; Z79.899 Other long term (current) drug therapy
CPT/HCPCS: 99283

== ENCOUNTER 2022-02-13 18:54 | Emergency (ER) | payer MEDICAID, OTHER ==
[~2022-02-13] VITALS: Ht 170.2 cm; Wt 91.0 kg
[2022-02-13 20:18] VITALS: BP 116/72
[2022-02-13] MEDS ORDERED: VISCOUS LIDOCAINE 2% 15 ML UDC PO STA (20:18)
[2022-02-13] MEDS ORDERED: PANTOPRAZOLE SODIUM 40 MG/VIAL IV STA (20:18)
[2022-02-13] MEDS ORDERED: MAGNESIUM/ALUMINUM HYDROXIDE/SIMETHICONE 30ML UDC PO STA ×2 (20:18)
[2022-02-13] MEDS ORDERED: MORPHINE SULFATE 4 MG/ML CPJ (NOT FOR IM USE) IV STA (20:18)
[2022-02-13] MEDS ORDERED: SODIUM CHLORIDE 0.9% 1,000 ML IV ONE (20:30)
[2022-02-13] MEDS ORDERED: DIPHENHYDRAMINE 50MG/ML VIAL IV ONE (20:30)
[2022-02-13] MEDS ORDERED: METOCLOPRAMIDE HCL 10MG/2ML VIAL IV ONE (20:30)
[2022-02-13 21:58] LABS: BASOPHILS % 0.2 % (0.0-2.0); HEMATOCRIT. 45.7 % (36.0-48.0); HEMOGLOBIN. 15.4 g/dL (12.0-16.0); LYMPHOCYTES % 8.3 % (20.0-50.0); MEAN CORPUSCULAR HEMOGLOBIN 28.6 pg (28.0-32.0); MEAN CORPUSCULAR VOLUME 84.8 fL (81.0-99.0); MEAN PLATELET VOLUME 9.1 fl (7.4-10.4); MONOCYTES % 3.8 % (2.0-8.0); NEUTROPHILS % 87.7 % (40.0-76.0); PLATELET 331 x1000/uL (130-400); RED BLOOD CELL COUNT 5.39 mill/uL (4.2-5.4); RED CELL DISTRIBUTION WIDTH 14.6 % (11.6-14.6)
[2022-02-13] MEDS ORDERED: VISCOUS LIDOCAINE 2% 15 ML UDC PO NR (22:00)
[2022-02-13] MEDS ORDERED: PANTOPRAZOLE SODIUM 40 MG/VIAL IV NR (22:00)
[2022-02-13] MEDS ORDERED: MAGNESIUM/ALUMINUM HYDROXIDE/SIMETHICONE 30ML UDC PO NR (22:00)
[2022-02-13 22:02] LABS: PROTHROMBIN TIME 10.9 sec (9.6-11.0)
[2022-02-13] MEDS ORDERED: SUCR1TAB30 PO (22:07)
[2022-02-13] MEDS ORDERED: OMEP10CA5 MT (22:07)
[2022-02-13 22:08] LABS: CHLORIDE 92 mEq/L (98-107)
[2022-02-13 22:24] LABS: HCG SCREEN NEGATIVE
[2022-02-13 22:26] LABS: ETHANOL BLOOD < 10 mg/dL
[2022-02-13] MEDS ORDERED: SUCRALFATE 1 G/10 ML UDC PO ONE (23:00)
[2022-02-13] MEDS ORDERED: FAMOTIDINE 20MG/2ML VIAL IV ONE (23:00)
[2022-02-13] MEDS ORDERED: LORAZEPAM 2MG/ML CPJ IV NR (23:00)
== END 2022-02-14 00:49 | disposition left against medical advice (07) ==
LOC: ER 18:56
DX: R10.13 Epigastric pain (principal); R11.2 Nausea with vomiting, unspecified; F41.9 Anxiety disorder, unspecified; F32.9 Major depressive disorder, single episode, unspecified; E11.9 Type 2 diabetes mellitus without complications; K21.9 Gastro-esophageal reflux disease without esophagitis; I10 Essential (primary) hypertension; I25.2 Old myocardial infarction; Z79.899 Other long term (current) drug therapy
CPT/HCPCS: 36415; 74176; 76705; 80053; 80320; 83690; 84484; 84703; 85025; 85610; 96361; 96374; 96375; 99285; C9113; J1200; J2270; J2765; J7030; G0480

== ENCOUNTER 2025-02-23 07:23 | Emergency (ER) | payer MEDICAID, OTHER ==
[~2025-02-23] VITALS: Ht 167.6 cm; Wt 91.0 kg
[~2025-02-23 07:23] MED LIST changes: +GABA-1180 MT; -GABA-532 MT; -LISI40TA13 MT; +LISI40TA21 MT
[2025-02-23 07:28] VITALS: O2SAT 96
[2025-02-23] MEDS: SODIUM CHLORIDE 0.9% (SEPSIS BOLUS) IV ONE (08:03)
[2025-02-23] MEDS: ONDANSETRON HCL 4MG/2ML INJ IV ONE (08:03)
[2025-02-23] MEDS: PIPERACILLIN/TAZO 3.375G/50ML 50 ML IV ONE (08:03)
[2025-02-23] MEDS: MORPHINE SULFATE 4 MG/ML INJ (FOR IV/IM USE) IV ONE ×2 (08:03→10:48)
[2025-02-23 08:09] LABS: HEMATOCRIT. 42.7 % (36.0-48.0); HEMOGLOBIN. 14.3 g/dL (12.0-16.0); MEAN PLATELET VOLUME 8.6 fl (7.4-10.4); PLATELET 307 x1000/uL (130-400); RED BLOOD CELL COUNT 5.17 mill/uL (4.2-5.4); RED CELL DISTRIBUTION WIDTH 14.9 % (11.6-14.6)
[2025-02-23 08:25] LABS: INR 1.0
[2025-02-23 08:27] LABS: CREATININE 0.8 mg/dL (0.6-1.0)
[2025-02-23 08:28] LABS: PROTEIN TOTAL 9.4 g/dL (6.0-8.3); UREA NITROGEN BLOOD 12 mg/dL (9-23)
[2025-02-23 08:29] LABS: ASPARTATE AMINOTRANSFERASE 27 IU/L (<34)
[2025-02-23 08:30] LABS: BILIRUBIN DIRECT 0.3 mg/dL (<=3.0); BILIRUBIN TOTAL 1.3 mg/dL (0.1-1.0)
[2025-02-23] MEDS: VANCOMYCIN 1G PREMIX 200 ML IV ONE (08:34)
[2025-02-23 09:51] LABS: CLARITY URINE CLOUDY (CLEAR); COLOR URINE YELLOW (YELLOW); GLUCOSE URINE 2+ (NEGATIVE); KETONES URINE 3+ (NEGATIVE); LEUKOCYTE ESTERASE URINE NEGATIVE (NEGATIVE); NITRITE URINE NEGATIVE (NEGATIVE); OCCULT BLOOD URINE 2+ (NEGATIVE); PH URINE 6.0 (4.5-8.0); PROTEIN URINE 3+ (NEGATIVE); SPECIFIC GRAVITY URINE 1.026 (1.005-1.030); UROBILINOGEN URINE 0.2 E.U./dL (0.2-1.0)
[2025-02-23 10:34] LABS: SQUAMOUS EPITHELIAL CELL URINE 3+ /lpf (RARE/1+)
[2025-02-23 10:35] LABS: BACTERIA URINE 4+
[2025-02-23 10:37] LABS: RBC URINE 0-2 /hpf (0-2)
[2025-02-23 10:40] LABS: LYMPHOCYTES % MANUAL 9.0 % (20.0-60.0); MONOCYTES % MANUAL 4.0 % (2.0-8.0); NEUTROPHILS % MANUAL 87.0 % (45.0-75.0); PLATELET ESTIMATE NORMAL
[2025-02-23 11:58] LABS: HCG SCREEN NEGATIVE
[2025-02-23] MEDS: HYDRALAZINE 20MG/ML VIAL IV ONE (12:41)
[2025-02-23 13:49] VITALS: BP 176/77; PULSE 106; RESP 21; TEMP 36.9; O2SAT 97
== END 2025-02-23 14:07 | disposition short-term general hospital (02) ==
LOC: ER 07:23 → CANBEDREQ 12:36 → ER 14:07
DX: R11.2 Nausea with vomiting, unspecified (principal); E11.9 Type 2 diabetes mellitus without complications; R19.7 Diarrhea, unspecified; E86.0 Dehydration; Z79.899 Other long term (current) drug therapy; Z86.73 Personal history of transient ischemic attack (TIA), and cerebral infarction without residual deficits
CPT/HCPCS: 80076; 80048; 81003; 84703; 83605; 85025; 85610; 87040; 87086; 87186; 87077; 36415; 84145; 71045; 74176; 93005; 96367; 96365; 96375; 99291; J0360; J2405; J2543; J3373; J2270; J7030; Z7610 ×2